=== PATIENT | female | born 1955 | race Caucasian/White ===

== ENCOUNTER 2020-01-09 14:18 | Outpatient (CLI) | payer MEDICARE, SELFPAY ==
[2020-01-09 15:08] LABS: Basophils % 0.3 %; Eosinophils # 0.1 10^3/uL (0.0-0.8); Eosinophils % 0.7 %; Hematocrit 46.9 % (37.0-47.0); Hemoglobin 15.9 g/dL (11.5-15.3); Lymphocytes # 2.1 10^3/uL (0.8-4.8); Lymphocytes % 29.3 %; Mean Corpuscular HGB Conc 33.9 g/dL (30.0-36.0); Mean Corpuscular Hemoglobin 33.8 pg (28.0-34.0); Mean Corpuscular Volume 99.6 fL (81-99); Monocytes # 0.6 10^3/uL (0.2-0.9); Monocytes % 9.1 %; Neutrophils # 4.2 10^3/uL (1.8-7.7); Neutrophils % 59.9 %; Nucleated Red Blood Cells % 0 %; Platelet Count 209 10^3/cmm (130-400); Red Blood Count 4.71 10^6/uL (4.1-5.3); Red Cell Distribution Width 12.5 % (12.1-15.1)
[2020-01-09 15:10] LABS: Alanine Aminotransferase 26 U/L (0-33); Albumin Level 4.1 g/dL (3.5-5.2); Alkaline Phosphatase 96 IU/L (35-105); Anion Gap 13.1 (5-19); Aspartate Amino Transferase 26 U/L (0-32); Blood Urea Nitrogen 14 mg/dL (8-23); Calcium 11.3 mg/dL (8.5-10.5); Carbon Dioxide 32 mmol/L (22-29); Chloride 100 mmol/L (98-107); Globulin 3.6 g/dL (1.3-4.6); Glomerular Filtration Rate 49.7 mL/min (90-130); Glucose 103 mg/dL (65-115); Osmolality Calculated 288 mOsm/kg (285-295); Potassium 4.1 mmol/L (3.5-5.1); Sodium 141 mmol/L (136-145); Total Bilirubin 0.4 mg/dL (0.15-1.2); Total Protein 7.7 g/dL (6.6-8.7)
--- NOTE | 2020-01-09 16:39 | ONC FU_ITS ---
Dr. Short follow up note Patient: Sunni Iglesias Unit #: [id number]: [id number] Dicatated By: Shelia Short M.D.Date of Visit:Jan 09, 2020 Onc Med Follow-up/Prog Note History of Present Illness: This is a 61 year-old woman with grade 2-3 infiltrating ductal carcinoma of the left breast, clinical stage IIA (T2, N0, M0), ER positive/WY negative and HER-2/ernesto positive. She had presented with a palpable left breast mass. Her mammogram on 05/03/2014 showed two lesions in close proximity at 2:00 position, about 9 mm away from each other. One measured 2.9 cm and the other measured 1.3 cm. There were two lymph nodes in the left axilla, suggestive of benign morphology. On 05/15/2014 an ultrasound-guided biopsy revealed invasive ductal carcinoma in both lesions. The prognostic markers were ER 99%, WY 1%, Ki67 50%, HER-2/ernesto amplified by FISH at 4.5. On 06/05/2014 she underwent sentinel lymph node biopsy of the left axilla; 5 lymph nodes harvested were negative for metastatic disease. Port-A-Cath was placed. Cardiac ejection fraction by echocardiogram was normal at 72%. Neoadjuvant chemotherapy with the TCH-P regimen, which consist of docetaxel, carboplatin, Pertuzumab and Herceptin for 6 cycles was delivered 06/20/14 thru 10/03/14. It was complicated with grade 4 neutropenia without fevers. She developed thrush, mucositis and recurrent urinary tract infection, treated with amoxicillin. On 11/07/2014 she underwent lumpectomy. Surgical pathology showed 2 foci of residual tumor measuring 1.5 cm and 1.1 cm with DCIS, solid type. The tumor was grade 3, and lymphovascular invasion was present. One lymph node was not involved. Superior margins were close at less than 1 mm. Thus, stage IA (ypT1c, N0, M0). She had a re- resection of the tumor on 11/27/2014, 2 foci of residual DCIS up to 0.5 mm were discovered. She completed radiation to the left breast on 02/14/2015 to a total dose of 6400 cGy. Bone density on 03/15/2015 showed osteoporosis. She did have treatment with Prolia on 03/21/2015, but it cuased jaw pain, and she opted not to have any further treatment with it. She began adjuvant hormonal therapy with Arimidex in October of 2014. She completed 52 weeks of Herceptin on 07/04/2015. Her hormonal therapy was changed to Femara in March 2016 due to increased musculoskeletal pain. It was then changed to Aromasin, again due to musculoskeletal pain.completed 5 years of hormonal therapy in October 2019 Follow-up mammogram done on 09/15/2019 showed benign finding bilaterally Came for follow-up, denies any specific complaints except chronic kukp-xc-[id number] muscular skeleton discomfort/pain especially involving shoulders. No hot flashes since she is off adjuvant hormonal therapy which she completed in October 2019 for 5 years. More energetic, no fever or chills, no nausea or vomiting, no diarrhea constipation, appetite is good. Medications: Caltrate Gummy Bites 1 (250-400 mg - Units) Tablet, chewable Oral b.i.d., Multivitamin Adult 1 Tablet Oral daily, Probiotic Capsule Oral PRN, RaNITidine HCl 1 Tablet (of 150 mg) Oral b.i.d. PRN, Xanax 1 (0.5 mg) Tablet Oral PRN Allergies: Cipro, Codeine, Macrobid, and Sulpha. Review of Systems: Review of Systems is not available for this patient. Vital Signs: Vitals are not available for this patient. Performance Status: 0 - Fully active, able to carry on all predisease activities without restrictions. (ECOG) Physical Examination: Respiratory - Lungs are clear to auscultation without rhonchi or wheezing, Cardiovascular - Regular rate and rhythm of heart, Extremities - no edema. Lab/Imaging: Most recent lab results are not available for this patient. Impression: 1. Patient with multifocal infiltrating ductal carcinoma of the left breast, ER positive/WY negative and HER-2/ernesto positive. She had clinical stage IIA disease at initial diagnosis in April 2014, 2. She was given neoadjuvant chemotherapy with 6 cycles of TCH-P, completed in September 2014. 3. She underwent lumpectomy in October 2014 with surgical pathology showing multiple foci of invasive carcinoma. The largest size of individual foci showed maximum span of 1.5 and 1.1 cm. Solid type ductal carcinoma in situ also was present, estimated size at least 1.5 cm. 4. Reexcision lumpectomy on 11/27/2014 showed 2 foci of residual ductal carcinoma in situ measuring up to 0.5 cm. 5. She completed radiation to the left breast on 02/14/2015 20 total dose of 6400 cGy. 6. Adjuvant hormonal therapy with Arimidex began in October 2014. She completed 52 weeks of Herceptin on 07/04/2015. 7. As of March 2016 her hormonal treatment was changed to Femara due to musculoskeletal pain. Her other medical illnesses include: 8. GERD. 9. Nephrolithiasis. 10. Osteoporosis. Osteoporosis. She did have treatment with Prolia on 03/21/15, but it caused jaw pain and she opted against any further treatment with it. DEXA scan done on 03/18/2017 showed improved bone density by 13.9% she is on calcium and vitamin D supplement She began adjuvant hormonal therapy with Arimidex in October of 2014. She completed 52 weeks of Herceptin on 07/04/2015. Her hormonal therapy was changed to Femara in March 2016 due to increased musculoskeletal pain. It was subsequently changed to Aromasin, again due to of musculoskeletal pain. Initially she had been tolerating the Aromasin somewhat better, but it was stopped a little over a month ago because of musculoskeletal pain. Since she's been off treatment, the pain is really not improved significantly. As such, it appears likely that the main cause of it is underlying degenerative disease. Mammogram done on 08/12/2018, BI-RADS 2, benign DEXA scan done on 05/03/2019 showed spinal bone mineral density within the range of osteoporosis Mean proximal femur bone mineral density within the range of borderline osteoporosis. Patient on vitamin D and calcium supplement. Was offered Prolia, patient declined Plan: . Discussed with patient regarding her labs white blood count 7 hemoglobin 15.9 crit 46.9 platelets 209,000 CMP within normal limits except calcium 11.3 Clinically, patient doing well with no signs symptoms suggestive of recurrence of disease patient has completed 5 years of chemotherapy in October 2019. And her follow-up mammogram done in August 2019 was unremarkable. At this point we will change her follow-up to 1 year and she will return to clinic in one year with CBC CMP and follow-up mammogram, as far as mild hyper calcium is concern patient is calcium supplement patient was advised to hold calcium and we will check her calcium level and a month to ensure normalization. Signed By: Shelia Short M.D. <<Signature on File>>
== END 2020-01-09 14:19 | disposition home or self-care (01) ==
LOC: ONCMED 14:27
PROVIDERS: Family Provider Family Medicine; PCP Family Medicine; Visit Provider Internal Medicine Hematology & Oncology
DX: Z08 Encounter for follow-up examination after completed treatment for malignant neoplasm (principal); Z85.3 Personal history of malignant neoplasm of breast; M81.0 Age-related osteoporosis without current pathological fracture; K21.9 Gastro-esophageal reflux disease without esophagitis; Z79.811 Long term (current) use of aromatase inhibitors; Z79.899 Other long term (current) drug therapy; Z92.23 Personal history of estrogen therapy; Z92.3 Personal history of irradiation; Z92.25 Personal history of immunosuppression therapy; Z87.442 Personal history of urinary calculi
CPT/HCPCS: 36415; 80053; 85025; G0463

== ENCOUNTER 2020-02-06 12:15 | Outpatient (CLI) | payer MEDICARE, SELFPAY ==
[2020-02-06 20:34] LABS: Basophils % 0.6 %; Eosinophils # 0.1 10^3/uL (0.0-0.8); Eosinophils % 0.8 %; Hemoglobin 15.2 g/dL (11.5-15.3); Lymphocytes # 1.7 10^3/uL (0.8-4.8); Lymphocytes % 26.2 %; Mean Corpuscular Hemoglobin 34.2 pg (28.0-34.0); Mean Corpuscular Volume 103.4 fL (81-99); Mean Platelet Volume 11.5 fL (7.4-10.4); Monocytes # 0.4 10^3/uL (0.2-0.9); Monocytes % 6.2 %; Neutrophils # 4.3 10^3/uL (1.8-7.7); Neutrophils % 65.6 %; Nucleated Red Blood Cells % 0 %; Platelet Count 203 10^3/cmm (130-400); Red Blood Count 4.45 10^6/uL (4.1-5.3); Red Cell Distribution Width 12.7 % (12.1-15.1); White Blood Count 6.6 10^3/uL (4.0-10.0)
[2020-02-06 21:00] LABS: Alanine Aminotransferase 22 U/L (0-33); Albumin Level 4.5 g/dL (3.5-5.2); Alkaline Phosphatase 80 IU/L (35-105); Anion Gap 18.3 (5-19); Aspartate Amino Transferase 25 U/L (0-32); Blood Urea Nitrogen 18 mg/dL (8-23); Calcium 9.5 mg/dL (8.5-10.5); Carbon Dioxide 24 mmol/L (22-29); Chloride 99 mmol/L (98-107); Globulin 2.6 g/dL (1.3-4.6); Glomerular Filtration Rate 62.6 mL/min (90-130); Glucose 85 mg/dL (65-115); Osmolality Calculated 280 mOsm/kg (285-295); Potassium 4.3 mmol/L (3.5-5.1); Sodium 137 mmol/L (136-145); Total Bilirubin 0.3 mg/dL (0.15-1.2); Total Protein 7.1 g/dL (6.6-8.7)
== END 2020-02-06 12:16 | disposition home or self-care (01) ==
LOC: ONCMED 02-07 07:35
PROVIDERS: Family Provider Family Medicine; PCP Family Medicine; Visit Provider Internal Medicine Hematology & Oncology
DX: C50.412 Malignant neoplasm of upper-outer quadrant of left female breast (principal)
CPT/HCPCS: 36415; 80053; 85025

== ENCOUNTER 2021-03-04 12:57 | Outpatient (CLI) | payer MEDICARE, SELFPAY ==
[2021-03-04 13:53] LABS: Basophils % 0.4 %; Eosinophils # 0.1 10^3/uL (0.0-0.8); Eosinophils % 0.8 %; Hematocrit 52.5 % (37.0-47.0); Hemoglobin 17.4 g/dL (11.5-15.3); Lymphocytes # 2.1 10^3/uL (0.8-4.8); Lymphocytes % 27.2 %; Mean Corpuscular HGB Conc 33.1 g/dL (30.0-36.0); Mean Corpuscular Hemoglobin 32.9 pg (28.0-34.0); Mean Corpuscular Volume 99.2 fL (81-99); Mean Platelet Volume 10.5 fL (7.4-10.4); Monocytes # 0.5 10^3/uL (0.2-0.9); Neutrophils # 5.07 10^3/uL (1.8-7.7); Neutrophils % 65.2 %; Nucleated Red Blood Cells % 0 %; Platelet Count 207 10^3/cmm (130-400); Red Blood Count 5.29 10^6/uL (4.1-5.3); Red Cell Distribution Width 12.4 % (12.1-15.1); White Blood Count 7.8 10^3/uL (4.0-10.0)
[2021-03-04 14:15] LABS: Alanine Aminotransferase 42 U/L (0-33); Albumin Level 4.1 g/dL (3.5-5.2); Alkaline Phosphatase 106 IU/L (35-105); Anion Gap 12.1 (5-19); Aspartate Amino Transferase 32 U/L (0-32); Blood Urea Nitrogen 19 mg/dL (8-23); Calcium 9.4 mg/dL (8.5-10.5); Carbon Dioxide 29 mmol/L (22-29); Chloride 100 mmol/L (98-107); Globulin 2.5 g/dL (1.3-4.6); Glomerular Filtration Rate 62.5 mL/min (90-130); Glucose 80 mg/dL (65-115); Osmolality Calculated 285 mOsm/kg (285-295); Potassium 4.1 mmol/L (3.5-5.1); Sodium 137 mmol/L (136-145); Total Bilirubin 0.3 mg/dL (0.15-1.2); Total Protein 6.6 g/dL (6.6-8.7)
--- NOTE | 2021-03-04 16:26 | ONC FU_ITS ---
Dr. Short follow up note Patient: Sunni Iglesias Unit #: [id number]: [id number] Dicatated By: Shelia Short M.D.Date of Visit:March 04, 2021 Onc Med Follow-up/Prog Note History of Present Illness: This is a 65 year-old woman with grade 2-3 infiltrating ductal carcinoma of the left breast, clinical stage IIA (T2, N0, M0), ER positive/AR negative and HER-2/renesto positive. She had presented with a palpable left breast mass. Her mammogram on 05/03/2014 showed two lesions in close proximity at 2:00 position, about 9 mm away from each other. One measured 2.9 cm and the other measured 1.3 cm. There were two lymph nodes in the left axilla, suggestive of benign morphology. On 05/15/2014 an ultrasound-guided biopsy revealed invasive ductal carcinoma in both lesions. The prognostic markers were ER 99%, AR 1%, Ki67 50%, HER-2/ernesto amplified by FISH at 4.5. On 06/05/2014 she underwent sentinel lymph node biopsy of the left axilla; 5 lymph nodes harvested were negative for metastatic disease. Port-A-Cath was placed. Cardiac ejection fraction by echocardiogram was normal at 72%. Neoadjuvant chemotherapy with the TCH-P regimen, which consist of docetaxel, carboplatin, Pertuzumab and Herceptin for 6 cycles was delivered 06/20/14 thru 10/03/14. It was complicated with grade 4 neutropenia without fevers. She developed thrush, mucositis and recurrent urinary tract infection, treated with amoxicillin. On 11/07/2014 she underwent lumpectomy. Surgical pathology showed 2 foci of residual tumor measuring 1.5 cm and 1.1 cm with DCIS, solid type. The tumor was grade 3, and lymphovascular invasion was present. One lymph node was not involved. Superior margins were close at less than 1 mm. Thus, stage IA (ypT1c, N0, M0). She had a re- resection of the tumor on 11/27/2014, 2 foci of residual DCIS up to 0.5 mm were discovered. She completed radiation to the left breast on 02/14/2015 to a total dose of 6400 cGy. Bone density on 03/15/2015 showed osteoporosis. She did have treatment with Prolia on 03/21/2015, but it cuased jaw pain, and she opted not to have any further treatment with it. She began adjuvant hormonal therapy with Arimidex in October of 2014. She completed 52 weeks of Herceptin on 07/04/2015. Her hormonal therapy was changed to Femara in March 2016 due to increased musculoskeletal pain. It was then changed to Aromasin, again due to musculoskeletal pain.completed 5 years of hormonal therapy in October 2019 Follow-up mammogram done on 09/15/2019 showed benign finding bilaterally Follow-up mammogram done on February 21, 2021 showed BI-RADS 2, benign Came for follow-up, denies any specific complaint except chronic right shoulder pain which is progressive, as per patient long time back she had injury as she was helping her horse and used to take ibuprofen and now with progressive mild restriction in the movements at right shoulder but no swelling, no peripheral numbness in the right hand, no overlying skin changes. Otherwise no new bony pains, no jaundice, no nausea or vomiting, no fever chills, no weight loss, appetite is good. 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 Medications: Caltrate Gummy Bites 1 (250-400 mg - Units) Tablet, chewable Oral b.i.d., Multivitamin Adult 1 Tablet Oral daily, Probiotic Capsule Oral PRN, RaNITidine HCl 1 Tablet (of 150 mg) Oral b.i.d. PRN, Xanax 1 (0.5 mg) Tablet Oral PRN Allergies: Cipro, Codeine, Macrobid, and Sulpha. Review of Systems: Review of Systems is not available for this patient. Vital Signs: Performed on March 04, 2021 15:49 Height - 66.00 in Weight - 162.8 lbs (LOW) BSA - 1.83 sq.m BMI - 26.28 Temperature - 98.4 F Pulse - 96 /min Respiration - 18 /min BP - 109/70 mm(hg) O2 Sat - 96 % Pain - 6 Fatigue - 0 Performance Status: 0 - Fully active, able to carry on all predisease activities without restrictions. (ECOG) Physical Examination: Respiratory - Lungs are clear to auscultation without rhonchi or wheezing, Cardiovascular - Regular rate and rhythm of heart without murmurs, gallops or rubs, Gastrointestinal - Rectum without hemorrhoids, fissures, tenderness or masses, Extremities - Mild tenderness in the right anterior shoulder and posterior but no fullness or overlying skin changes, no lower extremity edema or rash. Lab/Imaging: Most recent lab results are not available for this patient. Impression: 1. Patient with multifocal infiltrating ductal carcinoma of the left breast, ER positive/AR negative and HER-2/ernesto positive. She had clinical stage IIA disease at initial diagnosis in April 2014, 2. She was given neoadjuvant chemotherapy with 6 cycles of TCH-P, completed in September 2014. 3. She underwent lumpectomy in October 2014 with surgical pathology showing multiple foci of invasive carcinoma. The largest size of individual foci showed maximum span of 1.5 and 1.1 cm. Solid type ductal carcinoma in situ also was present, estimated size at least 1.5 cm. 4. Reexcision lumpectomy on 11/27/2014 showed 2 foci of residual ductal carcinoma in situ measuring up to 0.5 cm. 5. She completed radiation to the left breast on 02/14/2015 20 total dose of 6400 cGy. 6. Adjuvant hormonal therapy with Arimidex began in October 2014. She completed 52 weeks of Herceptin on 07/04/2015. 7. As of March 2016 her hormonal treatment was changed to Femara due to musculoskeletal pain. Her other medical illnesses include: 8. GERD. 9. Nephrolithiasis. 10. Osteoporosis. Osteoporosis. She did have treatment with Prolia on 03/21/15, but it caused jaw pain and she opted against any further treatment with it. DEXA scan done on 03/18/2017 showed improved bone density by 13.9% she is on calcium and vitamin D supplement She began adjuvant hormonal therapy with Arimidex in October of 2014. She completed 52 weeks of Herceptin on 07/04/2015. Her hormonal therapy was changed to Femara in March 2016 due to increased musculoskeletal pain. It was subsequently changed to Aromasin, again due to of musculoskeletal pain.And she completed 5 years of adjuvant hormonal therapy in October 2019 Initially she had been tolerating the Aromasin somewhat better, but it was stopped a little over a month ago because of musculoskeletal pain. Since she's been off treatment, the pain is really not improved significantly. As such, it appears likely that the main cause of it is underlying degenerative disease. Mammogram done on 08/12/2018, BI-RADS 2, benign DEXA scan done on 05/03/2019 showed spinal bone mineral density within the range of osteoporosis Mean proximal femur bone mineral density within the range of borderline osteoporosis. Patient on vitamin D and calcium supplement. Was offered Prolia, patient declined Follow-up mammogram done on February 21, 2021 showed benign findings BI-RADS 2. Plan: . Discussed with patient regarding her labs white blood count 7.8 hemoglobin 17.4 hematocrit 52.5 platelets 207,000 CMP within normal limits and follow-up mammogram showed no abnormalities Clinically, patient doing well with no new signs symptoms just of recurrence of disease her follow-up lab work is within normal range including her calcium level. Her follow-up mammogram showed no abnormality. As far as right shoulder pain is concerned which is chronic in nature, due to injury in the distant past, clinically, it appears she may have bursitis or tendinitis, patient was advised to discuss with PMD or we can refer her to orthopedics for evaluation as she may benefit from cortisone injection if no other abnormality found on the scans. Patient will discuss with her primary care and then plan. We will continue to follow her from oncology point of view and she will return to clinic in 1 year with CBC CMP and follow-up mammogram Signed By: Shelia Short M.D. <<Signature on File>>
== END 2021-03-04 12:58 | disposition home or self-care (01) ==
LOC: ONCMED 13:02
PROVIDERS: PCP Family Medicine; Visit Provider Internal Medicine Hematology & Oncology
DX: Z08 Encounter for follow-up examination after completed treatment for malignant neoplasm (principal); Z85.3 Personal history of malignant neoplasm of breast; Z90.12 Acquired absence of left breast and nipple; Z92.3 Personal history of irradiation; Z79.890 Hormone replacement therapy; K21.9 Gastro-esophageal reflux disease without esophagitis; N20.0 Calculus of kidney; M81.0 Age-related osteoporosis without current pathological fracture; E55.9 Vitamin D deficiency, unspecified; E83.51 Hypocalcemia; Z79.899 Other long term (current) drug therapy
CPT/HCPCS: 36415; 80053; 85025; 99214

== ENCOUNTER 2021-10-22 18:09 | Emergency (ER) | payer MEDICARE, SELFPAY ==
--- NOTE | 2021-10-22 18:15 | XRR_ITS ---
PROCEDURE INFORMATION: Exam: XR Right Shoulder Exam date and time: 10/22/2021 6:15 PM Age: 66 years old Clinical indication: Injury or trauma; Other: Reaching to move tree branch from fence. [place] pop; Sprain or strain; Shoulder; Right TECHNIQUE: Imaging protocol: XR Right shoulder. Views: 2 or more views. COMPARISON: No relevant prior studies available. FINDINGS: Bones/joints: Osseous structures are intact. Negative for fracture. Mild DJD of the acromioclavicular joint. Soft tissues: Normal. XR/XR shoulder RT min 2V* 51130 IMPRESSION: No acute findings.
[2021-10-22 18:58] VITALS: BP 166/86; PULSE 78; RESP 18; TEMP 36.3; O2SAT 97; BMI 25.8
--- NOTE | 2021-10-22 19:40 | W.ED.EXTPRO ---
HPI - Extremity Problem General: Chief complaint: Extremity Injury, Upper Stated complaint: Rt Shoulder Injury Time Seen by Provider: 10/22/21 19:39 History of Present Illness: HPI Narrative: Patient is a 66-year-old female comes to the ED with right shoulder injury. Patient says she has had problems in the past with her right shoulder and has been told she has some arthritis there as well. Today she was clearing some trees that fell down on some fencing. She went to lift up a tree branch that was on a fence and when she used her right arm to push the tree branch up and over fence she felt a pop in her right shoulder and then felt pain. She denies limited range of motion in right shoulder. Pain in shoulder when she abducts or externally rotates her arm. Associated symptoms: Deny chest pain, fever(s) or rash Review of Systems Const: Denies: fever(s), chills or fatigue Eyes: Denies: change in vision or eye discomfort ENMT: Denies: throat pain, odynophagia, nasal discharge or nasal congestion Card: Denies: chest pain, palpitations, edema, swelling of feet/ankles, dyspnea on exertion or orthopnea Resp: Denies: dyspnea, productive cough or non-productive cough GI: Denies: abdominal pain, nausea, vomiting, diarrhea, constipation or hematochezia : Denies: flank pain, dysuria or hematuria Musc: Reports: extremity pain (right shoulder) and limited range of motion (right shoulder); Denies: neck pain, back pain or extremity swelling Skin/Breast: Denies: rash or new lesions Neuro: Denies: headache(s), numbness in extremities or weakness in extremities Physical Exam Const: COMMON NORMALS: no acute distress, patient oriented x3 and alert GENERAL APPEARANCE: cooperative and comfortable HENMT: COMMON NORMALS: normocephalic HEAD & SCALP: normocephalic MOUTH: Normal oral and palatal mucosa present THROAT: posterior oropharynx normal and uvula midline Neck/C-Spine: COMMON NORMALS: supple GENERAL: Yes normal visual inspection Resp: COMMON NORMALS: normal respiratory effort, No retractions, No use of accessory muscles and clear to auscultation bilaterally AUSCULTATION: clear to auscultation bilaterally Cardio: COMMON NORMALS: regular rate, regular rhythm, S1 normal heart sound present, S2 normal heart sound present, No gallops present (Cardio), No clicks present (Cardio), No murmurs present (Cardio) and Peripheral pulses 2+ throughout RATE: regular rate RHYTHM: regular rhythm HEART SOUNDS: S1 normal heart sound present and S2 normal heart sound present PERIPHERAL PULSES: Peripheral pulses 2+ throughout GI: COMMON NORMALS: Normal to inspection, nondistended, normoactive bowel sounds present, Soft to palpation, non-tender and no masses PALPATION: Yes Soft to palpation : COMMON NORMALS: Yes no CVA tenderness BLADDER/KIDNEY EXAM: Yes no CVA tenderness Back/Pelvis: COMMON NORMALS: no CVA tenderness Extremity: GENERAL: Yes normal exam except as noted RIGHT UPPER EXTREMITY: Yes shoulder joint (Tenderness to palpation over AC joint and posterior aspect of shoulder) Right shoulder: Yes Right shoulder joint inspection exam (No visible deformity noted.), Yes palpation, Yes Right shoulder joint ROM exam (Limited range of motion for abduction of arm due to pain), Yes Right shoulder joint neurovascular exam (Intact) and Yes Right shoulder joint other findings (Pain with external rotation of right arm.) Neuro: COMMON NORMALS: patient oriented x3 and moves all extremities SENSORIUM/ORIENTATION: Yes alert Skin: GENERAL SKIN EXAM: dry skin Course Vital Signs: Vital signs: Vital Signs Temperature 97.4 F L 10/22/21 18:58 Pulse Rate 78 10/22/21 18:58 Respiratory Rate 18 10/22/21 18:58 Blood Pressure 166/86 10/22/21 18:58 Pulse Oximetry 97 10/22/21 18:58 MDM - Extremity (Nontraumatic) MDM Narrative: Medical decision making narrative: Patient is a 66-year-old female comes to the ED with right shoulder injury. Patient says she has had problems in the past with her right shoulder and has been told she has some arthritis there as well. Today she was clearing some trees that fell down on some fencing. She went to lift up a tree branch that was on a fence and when she used her right arm to push the tree branch up and over fence she felt a pop in her right shoulder and then felt pain. She denies limited range of motion in right shoulder. Pain in shoulder when she abducts or externally rotates her arm. Vitals are stable. Exam of patient shows limited range of motion due to pain in right shoulder with abduction and external rotation of her right arm. Neurovascular intact distally. X-ray of right shoulder showed no acute fractures or findings. Patient was put in a shoulder sling and discharged home. I placed order with case management for patient to be referred to orthopedic for further evaluation of right shoulder injury and pain. Suspicious for rotator cuff injury. Patient diagnosed with right shoulder injury and she was told watch case polisher will contact her in the next several days to set up an appoint with orthopedic. Take [id number] Tylenol or Motrin for any pain. Return to ED precautions given. Patient understood agree with plan. Imaging Data^: Xray Ortho: Attestation: I personally reviewed and interpreted this imaging study as follows: Radiologist's impression: [id number] [place], [place] [address]LQeh ReportSigned Patient: Sunni Iglesias #: [id number]: [id number]#:[id number]/Sex: 66 / FADM Date: 10/22/21Loc: ERRoom/Bed:Attending Dr: Ordering Provider/Ordering MD: Ben Del Toro MD Date of Service: 10/22/21 Procedure(s): XR shoulder RT min 2V* 44030 Accession Number(s): [id number] Report Number: [id number] PROCEDURE INFORMATION: Exam: XR Right Shoulder Exam date and time: 10/22/2021 6:15 PM Age: 66 years old Clinical indication: Injury or trauma; Other: Reaching to move tree branch from fence. [place] pop; Sprain or strain; Shoulder; Right TECHNIQUE: Imaging protocol: XR Right shoulder. Views: 2 or more views. COMPARISON: No relevant prior studies available. FINDINGS: Bones/joints: Osseous structures are intact. Negative for fracture. Mild DJD of the acromioclavicular joint. Soft tissues: Normal. XR/XR shoulder RT min 2V* [id number] IMPRESSION: No acute findings. Dictated By:Koby Chavez DOSigned By:Koby Chavez DOSmargaret Date/Time:10/22/21 1841DD/ 1815 Discharge Plan Discharge Patient Disposition: Home Clinical Impression: Right shoulder injury Qualifiers: Encounter type: initial encounter Qualified Code(s): S49.91XA - Unspecified injury of right shoulder and upper arm, initial encounter Condition: Stable Discharge Orders: Discharge ED (Routine); Ordered 10/22/21 Ordered By: Chirag Fong Referrals: Rivera Garcia [Primary Care Provider] - Discharge Diet: Regular Discharge Activity: Limit activity as instructed Patient Instructions: Rotator Cuff Injury (ED), Shoulder Sprain (ED), Shoulder Pain (ED) Activity Restrictions/Additional Instructions: Follow-up with medical provider as directed. Case management should be contacting you in the next several days to set up an appointment with orthopedic for follow-up and further evaluation of right shoulder injury. Apply cold pack on the shoulder to help with symptoms and wear shoulder sling. Limit activity with right arm as well until cleared by orthopedic doctor. Continue taking your home medications as previously prescribed. Return to the ER or your medical provider if condition worsens. Please read and understand discharge instructions. Thank you for choosing [facility] for your healthcare needs today. Please realize this is an emergency room and that we are providing you with a medical screening exam and this may not be complete and all inclusive of all the testing and or work up that you may need to determine your ailment or severity of your illness. It is very important that you follow up as instructed or that you return to the Emergency Department should you have concerns or if your condition changes or worsens in any way. Coding Level of Care Code ED Shear Scrapman for Tahira Barbosa Exam Comprehensive
--- NOTE | 2021-11-07 05:52 | DCPLANNER ---
bilingual account manager did refer patient to ortho - patient was seen on 10.28.21 at ortho.
== END 2021-10-22 20:07 | disposition home or self-care (01) ==
PROVIDERS: Emergency Provider Physician Assistant; PCP Family Medicine
DX: S49.91XA Unspecified injury of right shoulder and upper arm, initial encounter (principal); X50.0XXA Overexertion from strenuous movement or load, initial encounter
CPT/HCPCS: 73030; 99282

== ENCOUNTER 2022-04-29 09:25 | Oncology outpatient (recurring) (ONCR) | payer MEDICARE, SELFPAY ==
[2022-04-29 10:06] LABS: Basophils # 0.1 10^3/uL (0.0-0.1); Eosinophils # 0.4 10^3/uL (0.0-0.8); Hematocrit 45.2 % (37.0-47.0); Hemoglobin 15.2 g/dL (11.5-15.3); Lymphocytes # 1.5 10^3/uL (0.8-4.8); Mean Corpuscular HGB Conc 33.6 g/dL (30.0-36.0); Mean Corpuscular Volume 98.3 fl (81-99); Mean Platelet Volume 10.6 fL (7.4-10.4); Monocytes # 0.7 10^3/uL (0.2-0.9); Monocytes % 9.7 %; Neutrophils # 4.61 10^3/uL (1.8-7.7); Neutrophils % 62.8 %; Nucleated Red Blood Cells % 0 %; Platelet Count 199 10^3/cmm (130-400); Red Cell Distribution Width 13.1 % (12.1-15.1); White Blood Count 7.3 10^3/uL (4.0-10.0)
[2022-04-29 10:14] LABS: Alanine Aminotransferase 10 U/L (0-33); Albumin Level 4.2 g/dL (3.5-5.2); Alkaline Phosphatase 97 IU/L (35-105); Anion Gap 16.3 (5-19); Aspartate Amino Transferase 15 U/L (0-32); Blood Urea Nitrogen 20 mg/dL (8-23); Calcium 9.7 mg/dL (8.5-10.5); Carbon Dioxide 25 mmol/L (22-29); Chloride 100 mmol/L (98-107); Globulin 2.8 g/dL (1.3-4.6); Glomerular Filtration Rate 49.4 mL/min (90-130); Glucose 87 mg/dL (65-115); Osmolality Calculated 286 mOsm/kg (285-295); Potassium 4.3 mmol/L (3.5-5.1); Sodium 137 mmol/L (136-145); Total Bilirubin 0.3 mg/dL (0.15-1.2)
== END 2022-05-24 23:59 | disposition home or self-care (01) ==
PROVIDERS: PCP Family Medicine; Referring Provider Surgery; Visit Provider Internal Medicine Hematology & Oncology
DX: Z85.3 Personal history of malignant neoplasm of breast (principal); F17.210 Nicotine dependence, cigarettes, uncomplicated
CPT/HCPCS: 36415; 69210; 80053; 85025; 99214

== ENCOUNTER 2023-06-21 12:23 | Oncology outpatient (recurring) (ONCR) | payer MEDICARE, SELFPAY ==
[2023-06-21 12:29] VITALS: BP 138/85; PULSE 77; RESP 18; TEMP 36.5; O2SAT 96
[2023-06-21 12:46] LABS: Basophils # 0.1 10^3/uL (0.0-0.1); Basophils % 0.8 %; Eosinophils # 0.1 10^3/uL (0.0-0.8); Eosinophils % 1.7 %; Hematocrit 46.6 % (36-47); Lymphocytes # 1.8 10^3/uL (0.8-4.8); Lymphocytes % 27.9 %; Mean Corpuscular HGB Conc 33.5 g/dL (30-55); Mean Corpuscular Hemoglobin 32.4 pg (27-33); Mean Corpuscular Volume 96.9 fl (85-98); Monocytes # 0.7 10^3/uL (0.2-0.9); Monocytes % 10.3 %; Neutrophils # 3.86 10^3/uL (1.8-7.7); Nucleated Red Blood Cells % 0 %; Platelet Count 188 10^3/cmm (157-399); Red Blood Count 4.81 10^6/uL (3.85-5.65); Red Cell Distribution Width 13.1 % (12.1-15.1); White Blood Count 6.53 10^3/uL (3.29-11.43)
[2023-06-21 13:12] LABS: Alanine Aminotransferase 12 U/L (0-33); Albumin Level 4.3 g/dL (3.5-5.2); Alkaline Phosphatase 99 U/L (35-105); Anion Gap 12.3 (5-19); Aspartate Amino Transferase 17 U/L (0-32); Blood Urea Nitrogen 14 mg/dL (8-23); Calcium 9.7 mg/dL (8.5-10.5); Carbon Dioxide 28 mmol/L (22-29); Chloride 104 mmol/L (98-107); Globulin 2.5 g/dL (1.3-4.6); Glucose 92 mg/dL (65-115); Osmolality Calculated 290 mOsm/kg (285-295); Potassium 4.3 mmol/L (3.5-5.1); Sodium 140 mmol/L (136-145); Total Bilirubin 0.4 mg/dL (0.15-1.2); Total Protein 6.8 g/dL (6.6-8.7)
== END 2023-06-24 23:59 | disposition home or self-care (01) ==
PROVIDERS: Internal Medicine Medical Oncology; PCP Family Medicine; Referring Provider Surgery; Visit Provider Internal Medicine Hematology & Oncology
DX: Z08 Encounter for follow-up examination after completed treatment for malignant neoplasm (principal); Z85.3 Personal history of malignant neoplasm of breast; F17.210 Nicotine dependence, cigarettes, uncomplicated; Z92.21 Personal history of antineoplastic chemotherapy; Z92.3 Personal history of irradiation
CPT/HCPCS: 36415; 80053; 85025; 99213

== ENCOUNTER → 2023-08-30 11:15 | Outpatient (BNVA) | payer MEDICARE, SELFPAY | PROVIDERS: PCP Family Medicine; Visit Provider Podiatrist Foot & Ankle Surgery | DX: Q82.8 Other specified congenital malformations of skin (principal); M21.621 Bunionette of right foot; M21.622 Bunionette of left foot | CPT/HCPCS: 17110; 99203 ==

== ENCOUNTER 2024-03-18 17:52 | Emergency (ER) | payer MEDICARE, SELFPAY ==
[2024-03-18 17:57] VITALS: BP 175/92; PULSE 106; RESP 17; TEMP 36.7; O2SAT 97; BMI 24.2
--- NOTE | 2024-03-18 18:12 | ED_ITS ---
HPI - Dental/Oral 2 General: Chief complaint: Dental/Oral Stated complaint: sores in mouth Time Seen by Provider: 03/18/24 18:04 History of Present Illness: Patient presents to the ER with complaints of sore throat thrush and just not feeling well. Patient says over the last couple months she has been on at least 3 different antibiotics for sinuses that include a least Amoxil and Augmentin. She said she ended up getting thrush and went to the doctor and had 3 days of Diflucan that did not work so she went back and got put on a longer dose of Diflucan that she is currently on now she says she still has a thrush and is complaining of sore throat tongue burning and decreased taste. Review of Systems 2 General: Reports: 10 or more systems reviewed and unremarkable except in HPI and below PFSH ED 2 PFSH: Medical History Breast cancer, left breast Family History Mother Clotting disorder CAD (coronary artery disease) Hyperlipidemia Hypertension Grandfather CAD (coronary artery disease) Grandmother CAD (coronary artery disease) Family/Other Cancer Maternal Aunt, maternal uncle, and maternal great aunt - Breast cancer Sister Stroke Denies family history of Diabetes Dementia Psychiatric illness Chronic kidney disease (CKD) Suicide Anesthesia complication Bleeding disorder Lung disease Social History Smoking and tobacco/nicotine status: current every day tobacco/nicotine user (5 cigs/day) Alcohol intake: never Physical Exam 2 Const: COMMON NORMALS: no acute distress, average body habitus, patient oriented x3, no limitations, healthy appearing, alert and well nourished HENMT: COMMON NORMALS: normocephalic, atraumatic, hearing grossly normal bilaterally, external ears normal, Normal external nose present and moist oral mucous membranes; oropharynx not normal (Posterior oropharynx mildly red and irritated minimal white patches) HEAD & SCALP: normocephalic and atraumatic NOSE: Normal external nose present EXTERNAL EAR: Yes external ears normal Neck/C-Spine: COMMON NORMALS: full ROM, no lymphadenopathy, supple, no meningeal signs, no JVD and Thyroid normal THYROID: Thyroid normal Chest: COMMONS NORMALS: normal inspection of the chest and normal palpation of entire chest wall Resp: COMMON NORMALS: normal respiratory effort, No retractions, No use of accessory muscles and clear to auscultation bilaterally AUSCULTATION: clear to auscultation bilaterally Cardio: COMMON NORMALS: no JVD, regular rate, regular rhythm, S1 normal heart sound present, S2 normal heart sound present, No gallops present (Cardio), No clicks present (Cardio), No murmurs present (Cardio) and No rub (Cardio) R ATE: regular rate RHYTHM: regular rhythm HEART SOUNDS: S1 normal heart sound present and S2 normal heart sound present GI: COMMON NORMALS: Normal to inspection, nondistended, normoactive bowel sounds present, Soft to palpation, non-tender, No hepatosplenomegaly present and no masses PALPATION: Yes Soft to palpation and Yes No hepatosplenomegaly present Neuro: COMMON NORMALS: patient oriented x3 SENSORIUM/ORIENTATION: Yes alert MENINGEAL SIGNS: Yes no meningeal signs Course 2 Vital Signs: Vital signs: Vital Signs Temperature 98.1 F 03/18/24 17:57 Pulse Rate 106 H 03/18/24 17:57 Respiratory Rate 17 03/18/24 17:57 Blood Pressure 175/92 03/18/24 17:57 Pulse Oximetry 97 03/18/24 17:57 Oxygen Delivery Me thod Room Air 03/18/24 17:57 MDM - Dental/Oral Medical Decision Making Lab work came back was reviewed with patient all essentially benign. Patient be prescribed nystatin swish and swallow and can follow-up with her PCP within next 7 days. Differential Diagnosis Unlikely gingival abscess, dental caries, toothache, dental abscess, fracture of tooth or aphthous ulcer Medical Records I reviewed the patient's medical records. Lab Data I reviewed the patient's lab results. 03/18/24 18:21 03/18/24 18:21 Laboratory Results WBC 9.38 10^3/uL (3.29-11.43) 03/18/24 18:21 RBC 4.91 10^6/uL (3.85-5.65) 03/18/24 18:21 Hgb 16.20 g/dL (11.27-16.99) 03/18/24 18:21 Hct 47.7 % (36-47) H 03/18/24 18:21 MCV 97.1 fl (85-98) 03/18/24 18:21 MCH 33.0 pg (27-33) 03/18/24 18:21 MCHC 34.0 g/dL (30-55) 03/18/24 18:21 RDW 13.3 % (12.1-15.1) 03/18/24 18:21 Plt Count 214 10^3/cmm (157-399) 03/18/24 18:21 MPV 10.4 fL (7.4-10.4) 03/18/24 18:21 Neut % (Auto) 71.5 % 03/18/24 18:21 Lymph % (Auto) 19.5 % 03/18/24 18:21 [place] % (Auto) 7.8 % 03/18/24 18:21 Eos % (Auto) 0.1 % 03/18/24 18:21 Baso % (Auto) 0.2 % 03/18/24 18:21 Neut # (Auto) 6.71 10^3/uL (1.8-7.7) 03/18/24 18:21 Lymph # (Auto) 1.8 10^3/uL (0.8-4.8) 03/18/24 18:21 [place] # (Auto) 0.7 10^3/uL (0.2-0.9) 03/18/24 18:21 Eos # (Auto) 0.0 10^3/uL (0.0-0.8) 03/18/24 18:21 Baso # (Auto) 0.0 10^3/uL (0.0-0.1) 03/18/24 18:21 Nucleated RBC % (auto) 0 % 03/18/24 18:21 Nucleated RBCs # 0.0 /100WBC 03/18/24 18:21 Sodium 136 mmol/L (136-145) 03/18/24 18:21 Potassium 4.2 mmol/L (3.5-5.1) 03/18/24 18:21 Chloride 100 mmol/L (98-107) 03/18/24 18:21 Carbon Dioxide 24 mmol/L (22-29) 03/18/24 18:21 Anion Gap 16.2 (5-19) 03/18/24 18:21 BUN 17 mg/dL (8-23) 03/18/24 18:21 Creatinine 1.0 mg/dL (0.5-0.9) H 03/18/24 18:21 GFR Calculation 54.8 mL/min (90-130) L 03/18/24 18:21 Glucose 119 mg/dL (65-115) H 03/18/24 18:21 Calculated Osmolality 285 mOsm/kg (285-295) 03/18/24 18:21 Calcium 9.1 mg/dL (8.5-10.5) 03/18/24 18:21 Total Bilirubin 0.2 mg/dL (0.15-1.2) 03/18/24 18:21 AST 27 U/L (0-32) 03/18/24 18:21 ALT 50 U/L (0-33) H 03/18/24 18:21 Alkaline Phosphatase 91 U/L (35-105) 03/18/24 18:21 Total Protein 7.4 g/dL (6.6-8.7) 03/18/24 18:21 Albumin 4.3 g/dL (3.5-5.2) 03/18/24 18:21 Globulin 3.1 g/dL (1.3-4.6) 03/18/24 18:21 Group A Strep Rapid Negative (Negative) 03/18/24 18:28 No radiology studies performed this visit Discharge Plan Discharge Patient Disposition: Home Clinical Impression: Candidiasis of mouth Condition: Stable Prescriptions: New nystatin 100,000 unit/mL suspension 5 ml PO QID 7 Days Qty: 140 0RF Rx Instructions: swish and swallow No Action famotidine [Pepcid AC] 10 mg tablet 10 mg PO DAILY aspirin [Adult Low Dose Aspirin] 81 mg tablet,delayed release (DR/EC) 81 mg PO DAILY albuterol sulfate [ProAir HFA] 90 mcg/actuation HFA aerosol inhaler 2 puff inhalation Q6H PRN cetirizine 5 mg tablet 5 mg PO DAILY PRN ibuprofen 200 mg tablet 200 mg PO .hs PRN azelastine 137 mcg (0.1 %) aerosol,spray 1 spray intranasal BID Rx Instructions: administer into each nostril alprazolam [Xanax] 0.25 mg tablet 0.25 mg PO TID PRN Discharge Orders: Discharge ED (Routine); Ordered 03/18/24 Ordered By: Nicholas Luo Referrals: Rivera Garcia [Primary Care Provider] - 1 week Patient Instructions: Oral Candidiasis (ED) Activity Restrictions/Additional Instructions: Please use your medicine as directed. Please follow-up with your family practice physician within neck 7 days for further evaluation and treatment. Coding Level of Care Code ED [employer] for Tahira Barbosa
[2024-03-18 18:26] LABS: Basophils % 0.2 %; Eosinophils % 0.1 %; Hematocrit 47.7 % (36-47); Lymphocytes # 1.8 10^3/uL (0.8-4.8); Lymphocytes % 19.5 %; Mean Corpuscular Volume 97.1 fl (85-98); Mean Platelet Volume 10.4 fL (7.4-10.4); Monocytes # 0.7 10^3/uL (0.2-0.9); Monocytes % 7.8 %; Neutrophils # 6.71 10^3/uL (1.8-7.7); Neutrophils % 71.5 %; Nucleated Red Blood Cells % 0 %; Platelet Count 214 10^3/cmm (157-399); Red Blood Count 4.91 10^6/uL (3.85-5.65); Red Cell Distribution Width 13.3 % (12.1-15.1); White Blood Count 9.38 10^3/uL (3.29-11.43)
[2024-03-18 18:43] LABS: Alanine Aminotransferase 50 U/L (0-33); Albumin Level 4.3 g/dL (3.5-5.2); Alkaline Phosphatase 91 U/L (35-105); Anion Gap 16.2 (5-19); Aspartate Amino Transferase 27 U/L (0-32); Blood Urea Nitrogen 17 mg/dL (8-23); Calcium 9.1 mg/dL (8.5-10.5); Carbon Dioxide 24 mmol/L (22-29); Chloride 100 mmol/L (98-107); Creatinine Clr Calc Pharmacy 51.8936; Globulin 3.1 g/dL (1.3-4.6); Glomerular Filtration Rate 54.8 mL/min (90-130); Glucose 119 mg/dL (65-115); Osmolality Calculated 285 mOsm/kg (285-295); Potassium 4.2 mmol/L (3.5-5.1); Sodium 136 mmol/L (136-145); Total Bilirubin 0.2 mg/dL (0.15-1.2); Total Protein 7.4 g/dL (6.6-8.7)
[2024-03-18 18:49] LABS: Rapid Strep A Test Negative (Negative)
[2024-03-18 19:10] VITALS: PULSE 96; RESP 18; O2SAT 96
== END 2024-03-18 19:08 | disposition home or self-care (01) ==
PROVIDERS: Emergency Provider Emergency Medicine; PCP Family Medicine
DX: B37.0 Candidal stomatitis (principal); Z79.82 Long term (current) use of aspirin; F17.210 Nicotine dependence, cigarettes, uncomplicated; Z85.3 Personal history of malignant neoplasm of breast
CPT/HCPCS: 36415; 80053; 85025; 87081; 87880; 99283

== ENCOUNTER 2024-06-21 11:32 | Oncology outpatient (recurring) (ONCR) | payer MEDICARE, SELFPAY ==
[2024-06-21 12:11] LABS: Basophils % 0.3 %; Eosinophils % 0.2 %; Hematocrit 47.8 % (36-47); Lymphocytes # 1.3 10^3/uL (0.8-4.8); Lymphocytes % 12.9 %; Mean Corpuscular HGB Conc 34.1 g/dL (30-55); Mean Corpuscular Hemoglobin 33.8 pg (27-33); Mean Corpuscular Volume 99.2 fl (85-98); Mean Platelet Volume 10.3 fL (7.4-10.4); Monocytes # 0.8 10^3/uL (0.2-0.9); Monocytes % 7.9 %; Neutrophils # 7.63 10^3/uL (1.8-7.7); Neutrophils % 78.1 %; Nucleated Red Blood Cells % 0 %; Platelet Count 221 10^3/cmm (157-399); Red Blood Count 4.82 10^6/uL (3.85-5.65); Red Cell Distribution Width 12.6 % (12.1-15.1); White Blood Count 9.77 10^3/uL (3.29-11.43)
[2024-06-21 12:43] LABS: Alanine Aminotransferase 41 U/L (0-33); Albumin Level 4.4 g/dL (3.5-5.2); Alkaline Phosphatase 79 U/L (35-105); Anion Gap 16.3 (5-19); Aspartate Amino Transferase 29 U/L (0-32); Blood Urea Nitrogen 11 mg/dL (8-23); Carbon Dioxide 27 mmol/L (22-29); Chloride 99 mmol/L (98-107); Globulin 2.5 g/dL (1.3-4.6); Glomerular Filtration Rate 61.9 mL/min (90-130); Glucose 111 mg/dL (65-115); Osmolality Calculated 286 mOsm/kg (285-295); Potassium 4.3 mmol/L (3.5-5.1); Sodium 138 mmol/L (136-145); Total Bilirubin 0.4 mg/dL (0.15-1.2); Total Protein 6.9 g/dL (6.6-8.7)
== END 2024-06-24 23:59 | disposition home or self-care (01) ==
PROVIDERS: Internal Medicine Medical Oncology; PCP Family Medicine; Referring Provider Surgery; Visit Provider Internal Medicine Hematology & Oncology
DX: Z85.3 Personal history of malignant neoplasm of breast (principal); F17.210 Nicotine dependence, cigarettes, uncomplicated; C50.912 Malignant neoplasm of unspecified site of left female breast
CPT/HCPCS: 36415; 80053; 85025; 99214

== ENCOUNTER 2024-06-26 15:22 | Emergency (ER) | payer MEDICARE, SELFPAY ==
[2024-06-26] VITALS (14 sets, daily range): BP systolic 124–230; BP diastolic 80–120; PULSE 88–113; RESP 16–23; TEMP 36.5; O2SAT 95–100
--- NOTE | 2024-06-26 15:30 | CTR_ITS ---
PROCEDURE INFORMATION: Exam: CT Head Without Contrast Exam date and time: 06/26/2024 3:24 PM Age: 68 years old Clinical indication: Stroke-like symptoms; Altered mental status/memory loss; Additional info: Acute symptoms of stroke TECHNIQUE: Imaging protocol: Computed tomography of the head without contrast. Radiation optimization: All CT scans at this facility use at least one of these dose optimization techniques: automated exposure control; mA and/or kV adjustment per patient size (includes targeted exams where dose is matched to clinical indication); or iterative reconstruction. Other technique: STROKE PROTOCOL was implemented. COMPARISON: No relevant prior studies available. RADIATION DOSE METRICS: Total DLP (mGy-cm): 1083.93 FINDINGS: Brain: Heterogeneous right periventricular hypoattenuation involving the right parieto-occipital and temporal lobe. There is associated hyperattenuating material with Hounsfield units of approximately 100 which may represent ossified material. There is mass effect within the right cerebrum 0.7 cm leftward midline shift at the level of the septum pellucidum. Cerebral ventricles: Effacement of the temporal horn of the right lateral ventricle. No hydrocephalus. Paranasal sinuses: Visualized sinuses are unremarkable. No fluid levels. Mastoid air cells: Visualized mastoid air cells are well aerated. Bones: Unremarkable. No acute fracture. Soft tissues: Unremarkable. CT/CT head thrombolytic 71923 IMPRESSION: Heterogeneous hypoattenuation within the right parieto-occipital and temporal lobe with associated hyperdense material which may represent ossified parenchyma versus contrast. The density of the material is higher than blood products. There is mass effect causing 0.7 cm leftward midline shift. Underlying neoplasm cannot be excluded. Recommend further evaluation with brain MRI if clinically indicated. ASSESSMENT: ASPECTS ([place] Stroke Program Early CT Score) is 10. COMMENT: THIS REPORT CONTAINS FINDINGS THAT MAY BE CRITICAL TO PATIENT CARE. The exam findings were verbally communicated by me to TAMMIE AVENDANO via telephone conference at 4:14 PM CDT on 06/26/2024. The findings were acknowledged and understood.
--- NOTE | 2024-06-26 15:34 | ECG_ITS ---
[facility] Test Date: 2024-06-26 Pat Name: Sunni Iglesias Department: Room: Gender: Female [place]: : 1955 Requested By: Tyron Hernandez Order Number: [id number] Clementine MD: Max Tesfaye M.D. Measurements Intervals [place] Rate: 100 P: 80 NH: 144 QRS: 56 QRSD: 79 T: 60 QT: 326 QTc: 420 Interpretive Statements SINUS TACHYCARDIA Compared to ECG 01/17/2016 17:25:19 Sinus rhythm no longer present Electronically Signed On 06-26-2024 18:07:38 CDT by Max Tesfaye M.D. [id number]
[2024-06-26] MEDS: etomidate 2 mg/mL INJ SDV 10 mL 20 MG IVP (15:40)
[2024-06-26] MEDS: vecuronium 10 mg SDV IVP (15:40)
[2024-06-26] MEDS: nicardipine 20 MG/200 ML PREMIX 100 MG IV (15:47)
--- NOTE | 2024-06-26 15:47 | CTR_ITS ---
PROCEDURE INFORMATION: Exam: CTA Head With Contrast, Arteriography Exam date and time: 06/26/2024 4:03 PM Age: 68 years old Clinical indication: Other: Acute intracranial bleed TECHNIQUE: Imaging protocol: Computed tomographic angiography of the head with contrast. Exam focused on the arteries. 3D rendering (Not supervised by radiologist): MIP and/or 3D reconstructed images were created by the technologist. Radiation optimization: All CT scans at this facility use at least one of these dose optimization techniques: automated exposure control; mA and/or kV adjustment per patient size (includes targeted exams where dose is matched to clinical indication); or iterative reconstruction. Contrast material: OMNI 350; Contrast volume: 100 ml; Contrast route: INTRAVENOUS (IV); COMPARISON: CT head wo con* [id number] 06/26/2024 3:24 PM RADIATION DOSE METRICS: Total DLP (mGy-cm): 388.12 FINDINGS: ANTERIOR CIRCULATION: Right internal carotid artery: Intracranial segment is patent with no significant stenosis. No aneurysm. Right middle cerebral artery: No occlusion or significant stenosis. No aneurysm. Right anterior cerebral artery: No occlusion or significant stenosis. No aneurysm. Left internal carotid artery: Intracranial segment is patent with no significant stenosis. No aneurysm. Left middle cerebral artery: No occlusion or significant stenosis. No aneurysm. Left anterior cerebral artery: No occlusion or significant stenosis. No aneurysm. POSTERIOR CIRCULATION: Right vertebral artery: No occlusion or significant stenosis. No aneurysm. Left vertebral artery: No occlusion or significant stenosis. No aneurysm. Basilar artery: No occlusion or significant stenosis. No aneurysm. 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 Left posterior cerebral artery: No occlusion or significant stenosis. No aneurysm. Veins: Mixing artifact within the proximal left internal jugular vein. Brain: Ossification within the right parieto-occipital and temporal lobe which may be due to chronic hemorrhage. There is mass effect within the right cerebrum 0.7 cm leftward midline shift at the level of the septum pellucidum. Cerebral ventricles: No ventriculomegaly. Bones/joints: No acute fracture. Soft tissues: Unremarkable. COMMENT: THIS REPORT CONTAINS FINDINGS THAT MAY BE CRITICAL TO PATIENT CARE. The exam findings were verbally communicated by me to TAMMIE AVENDANO via telephone conference at 4:51 PM CDT on 06/26/2024. The findings were acknowledged and understood. PROCEDURE INFORMATION: Exam: CTA Neck With Contrast Exam date and time: 06/26/2024 4:03 PM Age: 68 years old Clinical indication: Other: Acute intracranial bleed TECHNIQUE: Imaging protocol: Computed tomographic angiography of the neck with contrast. Exam focused on the cervical segments of the vasculature. 3D rendering (Not supervised by radiologist): MIP and/or 3D reconstructed images were created by the technologist. Radiation optimization: All CT scans at this facility use at least one of these dose optimization techniques: automated exposure control; mA and/or kV adjustment per patient size (includes targeted exams where dose is matched to clinical indication); or iterative reconstruction. Contrast material: OMNI 350; Contrast volume: 100 ml; Contrast route: INTRAVENOUS (IV); COMPARISON: CT head wo con* [id number] 06/26/2024 3:24 PM RADIATION DOSE METRICS: Total DLP (mGy-cm): 388.12 FINDINGS: Tubes, catheters and devices: Endotracheal tube in place. Right common carotid artery: No stenosis. No dissection or occlusion. Right internal carotid artery: No stenosis of the extracranial segment. No dissection or occlusion. Right external carotid artery: No occlusion or stenosis of the origin. Left common carotid artery: No stenosis. No dissection or occlusion. Moderate atherosclerotic calcification. Left internal carotid artery: No stenosis of the extracranial segment. No dissection or occlusion. Left external carotid artery: No occlusion or stenosis of the origin. Right vertebral artery: No stenosis. No dissection or occlusion. Left vertebral artery: No stenosis. No dissection or occlusion. Soft tissues: Normal. No significant soft tissue swelling. Bones/joints: No acute fracture. Other findings: Moderate to severe emphysema. CT/CT angio headneck* [id number] IMPRESSION: 1. There is a prominent right-sided arteriovenous malformation centered within the right parieto-occipital lobe with an apparent feeding artery originating from the right posterior cerebral artery. 2. No large vessel stenosis or occlusion. IMPRESSION: No stenosis or occlusion. REFERENCES: NASCET CRITERIA. The degree of stenosis in the cervical segment of the internal carotid artery is based on NASCET criteria. Normal is no stenosis. Mild is less than 50% stenosis. Moderate is 50-69% stenosis. Severe is 70% to 99% stenosis. Total occlusion is no detectable patent lumen.
[2024-06-26] MEDS: propofol 1,000 MG/100 ML INJ 11.02 MG IV (15:54)
[2024-06-26] MEDS: iohexol 350 mg/mL 500 mL Btl (per mL) IV (16:11)
--- NOTE | 2024-06-26 16:13 | W.ED.NEUROSD ---
HPI - Neuro Symptoms/Deficit General: Chief Complaint: Neuro Symptoms/Deficit Stated Complaint: stroke alert Time Seen by Provider: 06/26/24 15:33 History of Present Illness: 68-year-old female presents emergency room via EMS on a stroke alert. Last known well was around 9 AM although the significant other had commented to the EMS crew that she seemed very groggy from the time she got up. She spent most of the day on the couch and then fell off the couch she was nonresponsive at that point and EMS was called. She was combative with EMS they actually had her wrist/together with [place] on arrival here and had given her Ativan and route. Patient combative very difficult to score in NIH as she is not responding verbally or following any commands. Related Data Home Medications Medication Instructions Recorded Confirmed albuterol sulfate 90 mcg/actuation 2 puff inhalation Q6H PRN 10/28/21 06/21/24 aerosol inhaler (ProAir HFA) aspirin 81 mg tablet,delayed 81 mg PO DAILY 10/28/21 06/21/24 release (Adult Low Dose Aspirin) azelastine 137 mcg (0.1 %) nasal 1 spray intranasal BID 06/14/22 06/21/24 spray alprazolam 0.25 mg tablet (Xanax) 0.25 mg PO TID PRN 06/21/23 06/21/24 atorvastatin 40 mg tablet mg PO 06/21/24 06/21/24 lisinopril 10 mg tablet mg PO 06/21/24 06/21/24 mupirocin 2 % topical ointment topical 06/21/24 06/21/24 propranolol 10 mg tablet mg PO 06/21/24 06/21/24 Previous Rx's Medication Instructions Recorded escitalopram oxalate 10 mg tablet 10 mg PO DAILY #30 tabs 06/21/24 Allergies Allergy/AdvReac Type Severity Reaction Status Date / Time codeine Allergy Unknown Verified 03/18/24 18:02 nitrofurantoin Allergy ALGY-Rash Verified 03/18/24 18:02 Review of Systems General: Reports: ROS unobtainable due to mental status [facility] PFSH: Medical History (Updated 06/26/24 @ 17:21 by Tyron Newberry DO) History of CVA (cerebrovascular accident) Breast cancer, left breast Family History Mother Clotting disorder CAD (coronary artery disease) Hyperlipidemia Hypertension Grandfather CAD (coronary artery disease) Grandmother CAD (coronary artery disease) Family/Other Cancer Maternal Aunt, maternal uncle, and maternal great aunt - Breast cancer Sister Stroke Denies family history of Diabetes Dementia Psychiatric illness Chronic kidney disease (CKD) Suicide Anesthesia complication Bleeding disorder Lung disease Social History Smoking and tobacco/nicotine status: unknown if used tobacco/nicotine Alcohol intake: never NIH stroke score NIHSS: Level Of Consciousness - 1a: 2 Level Of Consciousness Questions - 1b: Neither Correct Level Of Consciousness Commands - 1c: Neither Correct Best Gaze - 2: Forced Deviation Visual Madrigal - 3: Partial Hemianopia (Does not react to visual field challenges from the left side) Facial Palsy - 4: Normal Motor Arm Right - 5: No Drift Motor Arm Left - 5: No Drift Motor Leg Right - 6: No Drift Motor Leg Left - 6: No Drift Limb Ataxia - 7: Absent Sensory - 8: Normal Best Language - 9: Mute; Global Aphasia Dysarthia - 10: Intubated Extinction And Inattention - 11: 2 Score: Total Score: 14 Physical Exam HENMT: COMMON NORMALS: normocephalic, atraumatic and hearing grossly normal bilaterally HEAD & SCALP: normocephalic and atraumatic Resp: COMMON NORMALS: normal respiratory effort, No retractions, No use of accessory muscles and clear to auscultation bilaterally AUSCULTATION: clear to auscultation bilaterally Cardio: COMMON NORMALS: regular rate, regular rhythm and No murmurs present (Cardio) RATE: regular rate RHYTHM: regular rhythm GI: COMMON NORMALS: Soft to palpation and No hepatosplenomegaly present AUSCULTATION: Yes normoactive bowel sounds PALPATION: Yes Soft to palpation, No Tenderness to palpation present (GI), No Guarding due to palpation present (GI) and Yes No hepatosplenomegaly present Extremity: COMMON NORMALS: normal to inspection, capillary refill normal, no clubbing, cyanosis or edema, no calf tenderness and no pedal edema Skin: COMMON NORMALS: no rashes or lesions noted GENERAL SKIN EXAM: no rashes or lesions noted Procedures Intubation sedative: Etomidate Mg Given: 20 paralytic: Vecuronium Mg Given: 10 Laryngoscope: fiber optic video scope ET Tube Size: 8 ET Tube Uncuffed: No Tube Secured Depth (cm): 22 Tube Secured Location: teeth Tube Placement Confirmation: visualized tube passing through cords, equal breath sounds bilaterally and no breath sounds over epigastrium Patient Tolerated Procedure: well Intubation Complications: none Course Vital Signs: Vital signs: Vital Signs Temperature 97.7 F 06/26/24 15:50 Pulse Rate 105 H 06/26/24 17:12 Respiratory Rate 16 06/26/24 16:40 Blood Pressure 130/83 06/26/24 17:12 Pulse Oximetry 100 06/26/24 17:12 Oxygen Delivery Me thod Room Air 06/26/24 15:50 Fraction of Inspir ed Oxygen 50 06/26/24 16:18 MDM - Neuro Symptoms/Deficit Medical Decision Making Patient arrives as a stroke alert story difficult to assess because she is just combative she was actually restrained with Kerlix tied at the wrist by EMS. Patient was brought to the CT suite and scanned which showed a right parietal occipital bleed. She was brought back to the trauma bay and then intubated and started on nicardipine and propofol drips he was in return to the CT suite CTA of the head and neck shows AVM in the area of the bleed there is some midline shift. Patient's blood pressure was controlled by titration with nicardipine and propofol. She had no further complications to be transferred ER to ER to Dr. Valladares at [facility] for neurology will see her there. The CT head and CTA head and neck were forwarded with the crew as well as being uploaded. Medical Records I reviewed the patient's medical records. Lab Data I reviewed the patient's lab results. 06/26/24 16:23 06/26/24 16:[address] 06/26/24 15:30 IMPRESSION: Heterogeneous hypoattenuation within the right parieto-occipital and temporal lobe with associated hyperdense material which may represent ossified parenchyma versus contrast. The density of the material is higher than blood products. There is mass effect causing 0.7 cm leftward midline shift. Underlying neoplasm cannot be excluded. Recommend further evaluation with brain MRI if clinically indicated. ASSESSMENT: ASPECTS ([place] Stroke Program Early CT Score) is 10. COMMENT: THIS REPORT CONTAINS FINDINGS THAT MAY BE CRITICAL TO PATIENT CARE. The exam findings were verbally communicated by me to TYRON NEWBERRY via telephone conference at 4:14 PM CDT on 06/26/2024. The findings were acknowledged and understood. Head/Neck CTA 06/26/24 15:47 IMPRESSION: 1. There is a prominent right-sided arteriovenous malformation centered within the right parieto-occipital lobe with an apparent feeding artery originating from the right posterior cerebral artery. 2. No large vessel stenosis or occlusion. IMPRESSION: No stenosis or occlusion. REFERENCES: NASCET CRITERIA. The degree of stenosis in the cervical segment of the internal carotid artery is based on NASCET criteria. Normal is no stenosis. Mild is less than 50% stenosis. Moderate is 50-69% stenosis. Severe is 70% to 99% stenosis. Total occlusion is no detectable patent lumen. Chest X-Ray 06/26/24 16:25 IMPRESSION: No acute pulmonary disease. Endotracheal tube tip terminates proximally 1.2 cm above the heike. Consider 2 cm retraction is recommended if clinically indicated. COMMENT: THIS REPORT CONTAINS FINDINGS THAT MAY BE CRITICAL TO PATIENT CARE. The exam findings were verbally communicated by me to TYRON NEWBERRY via telephone conference at 4:44 PM CDT on 06/26/2024. The findings were acknowledged and understood. Laboratory Results WBC 12.50 10^3/uL (3.29-11.43) H 06/26/24 16:23 RBC 4.38 10^6/uL (3.85-5.65) 06/26/24 16:23 Hgb 14.70 g/dL (11.27-16.99) 06/26/24 16:23 Hct 46.5 % (36-47) 06/26/24 16:23 MCV 106.2 fl (85-98) H 06/26/24 16:23 MCH 33.6 pg (27-33) H 06/26/24 16:23 MCHC 31.6 g/dL (30-55) 06/26/24 16:23 RDW 12.1 % (12.1-15.1) 06/26/24 16:23 Plt Count 168 10^3/cmm (157-399) 06/26/24 16:23 MPV 10.7 fL (7.4-10.4) H 06/26/24 16:23 Neut % (Auto) 82.3 % 06/26/24 16:23 Lymph % (Auto) 8.0 % 06/26/24 16:23 [place] % (Auto) 8.8 % 06/26/24 16:23 Eos % (Auto) 0.2 % 06/26/24 16:23 Baso % (Auto) 0.2 % 06/26/24 16:23 Neut # (Auto) 10.29 10^3/uL (1.8-7.7) H 06/26/24 16:23 Lymph # (Auto) 1.0 10^3/uL (0.8-4.8) 06/26/24 16:23 [place] # (Auto) 1.1 10^3/uL (0.2-0.9) H 06/26/24 16:23 Eos # (Auto) 0.0 10^3/uL (0.0-0.8) 06/26/24 16:23 Baso # (Auto) 0.0 10^3/uL (0.0-0.1) 06/26/24 16:23 Nucleated RBC % (auto) 0 % 06/26/24 16:23 Nucleated RBCs # 0.0 /100WBC 06/26/24 16:23 PT 13.50 SECONDS (12.1-14.9) 06/26/24 16:23 INR 1.00 (0.8-1.2) 06/26/24 16:23 APTT 25.8 SECONDS (23.9-36.7) 06/26/24 16:23 Sodium 132 mmol/L (136-145) L 06/26/24 16:23 Potassium 3.6 mmol/L (3.5-5.1) 06/26/24 16:23 Chloride 98 mmol/L (98-107) 06/26/24 16:23 Carbon Dioxide 19 mmol/L (22-29) L 06/26/24 16:23 Anion Gap 18.6 (5-19) 06/26/24 16:23 BUN 9 mg/dL (8-23) 06/26/24 16:23 Creatinine 0.7 mg/dL (0.5-0.9) 06/26/24 16:23 GFR Calculation 82.7 mL/min (90-130) L 06/26/24 16:23 Glucose 111 mg/dL (65-115) 06/26/24 16:23 Calculated Osmolality 273 mOsm/kg (285-295) L 06/26/24 16:23 Calcium 8.3 mg/dL (8.5-10.5) L 06/26/24 16:23 Total Bilirubin 0.6 mg/dL (0.15-1.2) 06/26/24 16:23 AST 24 U/L (0-32) 06/26/24 16:23 ALT 17 U/L (0-33) 06/26/24 16:23 Alkaline Phosphatase 63 U/L (35-105) 06/26/24 16:23 Total Protein 5.6 g/dL (6.6-8.7) L 06/26/24 16:23 Albumin 3.4 g/dL (3.5-5.2) L 06/26/24 16:23 Globulin 2.2 g/dL (1.3-4.6) 06/26/24 16:23 Urine Color Yellow (Yellow) 06/26/24 15:53 Urine Appearance Clear (CLEAR) 06/26/24 15:53 Urine pH 7.0 (5-7) 06/26/24 15:53 Ur Specific [place] 1.010 (1.005-1.030) 06/26/24 15:53 Urine Protein Trace (Negative) A 06/26/24 15:53 Urine Glucose (UA) Negative (Normal) 06/26/24 15:53 Urine Ketones Negative (Negative) 06/26/24 15:53 Urine Blood 1+ (Negative) A 06/26/24 15:53 Urine Nitrate Negative (Negative) 06/26/24 15:53 Urine Bilirubin Negative (Negative) 06/26/24 15:53 Urine Urobilinogen 1.0 mg/dL (Negative) 06/26/24 15:53 Ur Leukocyte Esterase Negative (Negative) 06/26/24 15:53 Amorphous Sediment Not Reportable 06/26/24 15:53 Urine Opiates Screen Negative ng/mL (Negative) 06/26/24 15:53 Ur Barbiturates Screen Negative ng/mL (Negative) 06/26/24 15:53 Ur Phencyclidine Scrn Negative ng/mL (Negative) 06/26/24 15:53 Ur Amphetamines Screen Negative ng/mL (Negative) 06/26/24 15:53 U Benzodiazepines Scrn Negative ng/mL (Negative) 06/26/24 15:53 Urine Cocaine Screen Negative ng/mL (Negative) 06/26/24 15:53 U Marijuana (THC) Screen Negative ng/mL (Negative) 06/26/24 15:53 All radiology interpretation(s) finalized by discharge Critical Care Time Critical Care Time: Critical Care Time: Yes Total Critical Care Time: 40 Attestation: The high probability of a clinically significant, sudden or life threatening deterioration of the patient's neurologic vascular system(s) required my full and direct attention, intervention and personal management. The critical care time is as shown. This time is in addition to time spent performing any reported procedures but includes the following: [x] Data and vital sign review and interpretation [x] Patient assessment, examination and intervention [x] Documentation [x] Medication orders and management Discharge Plan Discharge Patient Disposition: Xfer Short-Term Hosp Clinical Impression: Intracranial hemorrhage, Arteriovenous malformation of brain, Accelerated hypertension Condition: Stable Referrals: Rivera Garcia [Primary Care Provider] - Coding Level of Care Code ED Stamping Mill Tender for Tahira Barbosa
--- NOTE | 2024-06-26 16:25 | XRR_ITS ---
PROCEDURE INFORMATION: Exam: XR Chest Exam date and time: 06/26/2024 4:27 PM Age: 68 years old Clinical indication: Device placement; Ett placement (vent status); Additional info: Dyspnea/cough TECHNIQUE: Imaging protocol: Radiologic exam of the chest. Views: 1 view. COMPARISON: CT angio headneck* [id number] 06/26/2024 4:03 PM FINDINGS: Tubes, catheters and devices: Endotracheal tube tip terminates proximally 1.2 cm above the heike. Enteric tube tip overlies the expected region of the stomach. Lungs: The lungs are adequately expanded. No focal consolidations or pulmonary edema. Emphysema. Pleural spaces: No pleural effusions or pneumothorax. Heart/Mediastinum: No cardiomegaly. Vasculature: Atherosclerotic calcifications. Bones/joints: No acute fractures. XR/XR chest 1V portable [id number] IMPRESSION: No acute pulmonary disease. Endotracheal tube tip terminates proximally 1.2 cm above the heike. Consider 2 cm retraction is recommended if clinically indicated. COMMENT: THIS REPORT CONTAINS FINDINGS THAT MAY BE CRITICAL TO PATIENT CARE. The exam findings were verbally communicated by me to TAMMIE AVENDANO via telephone conference at 4:44 PM CDT on 06/26/2024. The findings were acknowledged and understood.
--- NOTE | 2024-06-26 16:25 | PC.NURSE ---
STROKE ALERT CALLED AT 1505. WHEN PT ARRIVED, PT WAS UNABLE TO FOLLOW COMMANDS SO STROKE ASSESSMENT WAS UNABLE TO BE COMPLETED.
[2024-06-26 16:26] LABS: Charge for UA Resulting for Rev
[2024-06-26 16:27] LABS: Basophils % 0.2 %; Eosinophils % 0.2 %; Hematocrit 46.5 % (36-47); Mean Corpuscular HGB Conc 31.6 g/dL (30-55); Mean Corpuscular Hemoglobin 33.6 pg (27-33); Mean Corpuscular Volume 106.2 fl (85-98); Mean Platelet Volume 10.7 fL (7.4-10.4); Monocytes # 1.1 10^3/uL (0.2-0.9); Monocytes % 8.8 %; Neutrophils # 10.29 10^3/uL (1.8-7.7); Neutrophils % 82.3 %; Nucleated Red Blood Cells % 0 %; Platelet Count 168 10^3/cmm (157-399); Red Blood Count 4.38 10^6/uL (3.85-5.65); Red Cell Distribution Width 12.1 % (12.1-15.1)
[2024-06-26 16:38] LABS: Amphetamines Screen Urine Negative (Negative); Barbiturates Screen Urine Negative (Negative); Benzodiazepines Screen Urine Negative (Negative); Cocaine Screen Urine Negative (Negative); Opiate Screen Urine Negative (Negative); PCP Screen Urine Negative (Negative); THC Screen Urine Negative (Negative)
[2024-06-26 16:41] LABS: Partial Thromboplastin Time 25.8 SECONDS (23.9-36.7)
--- NOTE | 2024-06-26 16:44 | PC.NURSE ---
this nurse pulled extra Nicardipine bag to send with Air Evac; Leticia Cox RN pulled extra Propofol gtt per verbal order of Dr. Newberry to send with Air Evac d/t infusion rates.
[2024-06-26 16:48] LABS: Alanine Aminotransferase 17 U/L (0-33); Albumin Level 3.4 g/dL (3.5-5.2); Alkaline Phosphatase 63 U/L (35-105); Blood Urea Nitrogen 9 mg/dL (8-23); Calcium 8.3 mg/dL (8.5-10.5); Carbon Dioxide 19 mmol/L (22-29); Chloride 98 mmol/L (98-107); Creatinine Clr Calc Pharmacy 62.0556; Globulin 2.2 g/dL (1.3-4.6); Glomerular Filtration Rate 82.7 mL/min (90-130); Glucose 111 mg/dL (65-115); Osmolality Calculated 273 mOsm/kg (285-295); Sodium 132 mmol/L (136-145); Total Bilirubin 0.6 mg/dL (0.15-1.2); Total Protein 5.6 g/dL (6.6-8.7)
[2024-06-26 16:48] LABS: Bilirubin Urine Negative (Negative); Blood Urine 1+ (Negative); Glucose Urine UA Negative (Normal); Ketones Urine Negative (Negative); Leukocyte Esterase Urine Negative (Negative); Nitrate Urine Negative (Negative); Protein Urine Trace (Negative); Urine Appearance Clear (CLEAR); Urine Color Yellow (Yellow)
[2024-06-26 17:02] LABS: Anion Gap 18.6 (5-19); Aspartate Amino Transferase 24 U/L (0-32); Potassium 3.6 mmol/L (3.5-5.1)
[2024-06-26 17:17] LABS: RBC Urine 0-4 /hpf (0-2); Squamous Epithelial Cell Urine 0-4 /hpf (0-5); WBC Urine 0-4 /hpf (0-5)
[2024-06-26 17:18] LABS: Amorphous Sediment Urine 1+ /hpf; Bacteria Urine TRACE /hpf; Coarse Granular Casts Urine 0-4 /lpf; Fine Granular Casts Urine 0-4 /lpf; Mucus Urine 1+ /hpf
== END 2024-06-26 17:14 | disposition short-term general hospital (02) ==
PROVIDERS: Emergency Provider Family Medicine; PCP Family Medicine
DX: I62.9 Nontraumatic intracranial hemorrhage, unspecified (principal); Q28.2 Arteriovenous malformation of cerebral vessels; I10 Essential (primary) hypertension; Z86.73 Personal history of transient ischemic attack (TIA), and cerebral infarction without residual deficits; Z85.3 Personal history of malignant neoplasm of breast
CPT/HCPCS: 36415; 51702; 70450; 70496; 70498; 71045; 80053; 80306; 81003; 81015; 85025; 85610; 85730; 93005; 94002; 96365; 96367; 99291; 99292; J2704; J3490

== ENCOUNTER 2024-07-17 12:28 | Observation (INO) | payer MEDICARE, SELFPAY ==
[2024-07-17] VITALS (12 sets, daily range): BP systolic 82–170; BP diastolic 49–89; PULSE 68–95; RESP 16–18; TEMP 36.3–36.8; O2SAT 92–98; BMI 21.7
--- NOTE | 2024-07-17 12:33 | CTR_ITS ---
PROCEDURE INFORMATION: Exam: CT Head Without Contrast Exam date and time: 07/17/2024 12:54 PM Age: 69 years old Clinical indication: Altered mental status/memory loss; Additional info: Encephalopathy, altered mental status TECHNIQUE: Imaging protocol: Computed tomography of the head without contrast. Radiation optimization: All CT scans at this facility use at least one of these dose optimization techniques: automated exposure control; mA and/or kV adjustment per patient size (includes targeted exams where dose is matched to clinical indication); or iterative reconstruction. COMPARISON: CT angio headneck* [id number] 06/26/2024 4:03 PM RADIATION DOSE METRICS: Total DLP (mGy-cm): 756 FINDINGS: Brain: Increased hypodensity at the right basal ganglia, specifically at the level of the right thalamus as compared with prior. Stable right to left midline shift . No large intracranial hemorrhage or brain herniation. Cerebral ventricles: Stable mass effect upon the posterior horn of the right lateral ventricle. Stable ex vacuo ventriculomegaly. Paranasal sinuses: Visualized sinuses are unremarkable. No fluid levels. Mastoid air cells: Visualized mastoid air cells are well aerated. Bones: Right temporal craniotomy without complications. Soft tissues: Unremarkable. Vasculature: Stable linear calcifications throughout the right parietal, occipital, and temporal lobes which are of chronic etiology and likely related to an underlying known arteriovenous malformation at this level. CT/CT head wo con* [id number] IMPRESSION: 1. Increased hypodensity at the right basal ganglia, specifically at the level of the right thalamus as compared with prior. Suspicious for evolving, now chronic ischemic changes. 2. No large intracranial hemorrhage or brain herniation. COMMENTS: Consider follow-up MRI.
--- NOTE | 2024-07-17 12:33 | ECG_ITS ---
[facility] Test Date: 2024-07-17 Pat Name: Sunni Iglesias Department: Room: 279 Gender: Female Casing Trimmer: : 1955 Requested By: Lizz Hernandez Order Number: [id number] Spring MD: Max Tesfaye M.D. Measurements Intervals [place] Rate: 82 P: 97 MS: 145 QRS: 10 QRSD: 74 T: -5 QT: 344 QTc: 403 Interpretive Statements SINUS RHYTHM POSSIBLE LEFT ATRIAL ENLARGEMENT [-0.1mV P-WAVE IN V1/V2] Compared to ECG 06/26/2024 15:45:27 Sinus tachycardia no longer present Electronically Signed On 07-18-2024 16:57:08 CDT by Max Tesfaye M.D. [id number] f
--- NOTE | 2024-07-17 12:33 | XRR_ITS ---
PROCEDURE INFORMATION: Exam: XR Chest Exam date and time: 07/17/2024 12:38 PM Age: 69 years old Clinical indication: Other: Weakness TECHNIQUE: Imaging protocol: Radiologic exam of the chest. Views: 1 view. COMPARISON: CR (CHEST, ) 06/26/2024 4:27 PM FINDINGS: Airway: Airways are patent. Lungs: Lung hyperlucency, favoring emphysema. Bilateral apical capping/scarring. No consolidations. Pleural spaces: No pleural effusions or pneumothorax. Heart/Mediastinum: No cardiomegaly. Vasculature: Calcified aortic knob. Bones/joints: No acutely displaced fractures. No aggressive osseous lesions. Soft tissues: Surgical clips in the left axilla. Chronic appearing calcifications in the left axilla. XR/XR chest 1V portable [id number] IMPRESSION: No acute thoracic pathology.
--- NOTE | 2024-07-17 12:46 | W.ED.AMS ---
HPI - Altered Mental Status General: Chief Complaint: Altered Mental Status Stated Complaint: decreased LOC Time Seen by Provider: 07/17/24 12:30 History of Present Illness: 69-year-old female who presents to the emergency room by ambulance with failure to thrive/weakness/not eating. She was recently diagnosed with an inoperable brain tumor. Initially thought was a stroke but then she was diagnosed with a tumor. Family is concerned that she has not been eating and she seems more confused than usual. No known fevers. No vomiting. Related Data Home Medications Medication Instructions Recorded Confirmed albuterol sulfate 90 mcg/actuation 2 puff inhalation Q6H 10/28/21 07/17/24 aerosol inhaler (ProAir HFA) aspirin 81 mg tablet,delayed 81 mg PO DAILY 10/28/21 07/17/24 release (Adult Low Dose Aspirin) atorvastatin 40 mg tablet 40 mg PO DAILY 06/21/24 07/17/24 lisinopril 10 mg tablet 10 mg PO DAILY 06/21/24 07/17/24 acetaminophen 325 mg tablet 325 mg PO Q6H PRN Pain 07/17/24 07/17/24 (Tylenol) dexamethasone 4 mg tablet 2 mg PO DAILY 07/17/24 07/17/24 dexamethasone 4 mg tablet 2 mg PO TID 07/17/24 07/17/24 dexamethasone 4 mg tablet 4 mg PO BID 07/17/24 07/17/24 dexamethasone 4 mg tablet 4 mg PO TID 07/17/24 07/17/24 escitalopram oxalate 10 mg tablet 5 mg PO QPM 07/17/24 07/17/24 fluticasone propionate 50 1 spray intranasal Q12H 07/17/24 07/17/24 mcg/actuation nasal spray,suspension hydrocodone 5 mg-acetaminophen 325 1 tab PO Q6H 07/17/24 07/17/24 mg tablet levetiracetam 500 mg tablet 500 mg PO BID 07/17/24 07/17/24 lorazepam 0.5 mg tablet (Ativan) 0.5 mg PO TID PRN Anxiety 07/17/24 07/17/24 magnesium oxide 500 mg capsule 500 mg PO DAILY 07/17/24 07/17/24 potassium gluconate 595 mg (99 mg) 595 mg PO DAILY 07/17/24 07/17/24 tablet quetiapine 50 mg tablet 50 mg PO QPM 07/17/24 07/17/24 Allergies Allergy/AdvReac Type Severity Reaction Status Date / Time codeine Allergy Unknown Verified 03/18/24 18:02 nitrofurantoin Allergy ALGY-Rash Verified 03/18/24 18:02 [facility] ED PFS: Medical History (Updated 07/17/24 @ 15:59 by Lizz Painter MD) History of CVA (cerebrovascular accident) Breast cancer, left breast Family History Mother Clotting disorder CAD (coronary artery disease) Hyperlipidemia Hypertension Grandfather CAD (coronary artery disease) Grandmother CAD (coronary artery disease) Family/Other Cancer Maternal Aunt, maternal uncle, and maternal great aunt - Breast cancer Sister Stroke Denies family history of Diabetes Dementia Psychiatric illness Chronic kidney disease (CKD) Suicide Anesthesia complication Bleeding disorder Lung disease Social History Smoking and tobacco/nicotine status: unknown if used tobacco/nicotine Alcohol intake: never Physical Exam Narrative: General: Alert Skin: Warm, dry. Head: Normocephalic, atraumatic. Neck: Supple, trachea midline. Eye: Extraocular movements are intact. Ears, nose, mouth and throat: Dry oral mucosa Cardiovascular: Regular, Normal peripheral perfusion. Respiratory: Lungs are clear to auscultation, respirations are non-labored, breath sounds are equal, Symmetrical chest wall expansion. Gastrointestinal: Soft, Nontender, Non distended Musculoskeletal: Normal ROM, no deformity. Neurological: Patient has no obvious focal motor deficits at this time but she does seem somewhat confused. She does seem to recognize her . Psychiatric: Unable to assess Course Vital Signs: Vital signs: Vital Signs Temperature 98.3 F 07/17/24 12:29 Pulse Rate 72 07/17/24 12:29 Respiratory Rate 16 07/17/24 15:13 Blood Pressure 170/89 07/17/24 15:13 Pulse Oximetry 98 07/17/24 15:13 Oxygen Delivery Me thod Room Air 07/17/24 12:29 MDM - Altered Mental Status Medical Decision Making Medical decision making: Differential diagnosis including but not limited to and based on the above HPI, review of systems and physical exam: In this patient with altered mental status: Stroke. Hypoglycemia. Metabolic encephalopathy. Infections such as pneumonia, urinary tract infection, Covid-19, Influenza. Electrolyte abnormalities such as hypernatremia. Renal failure / uremia. Hepatic encephalopathy. Hypoxemia. Hypercapnic respiratory failure. Psychosis. Drug or alcohol intoxication. Medication overdose. Orders placed to evaluate differential diagnosis based on the above differential, HPI and physical exam EKG: Time 1233. Rate 82. Normal sinus rhythm, No ST-T changes, no ectopy, normal TN & QRS intervals, This was reviewed and interpreted by myself the ER physician at 1235 Chest x-ray: No acute process. No infiltrate. No pneumothorax. This was reviewed and interpreted by myself the ER physician. CT of the head without contrast: Worsening disease/appearance. Read as stroke but apparently this is actually a glioblastoma. Lab Review: Laboratory results were reviewed and interpreted by myself the emergency room physician. No leukocytosis. No anemia. Patient's BUN is considerably elevated and her sodium is down a bit. BUN is 29 today. This would indicate dehydration. Also she has some low normal blood pressures. Saline is being given. Also some IV Decadron at this time. Consultation: I called transfer center at [facility]. I was able to get pathology. Apparently this is a glioblastoma. IDH wild-type. INBOUND CUSTOMER SERVICE AGENT WHO grade 4. Hypercellular glial tissue with necrosis and vascular proliferation. Consultation: I spoke with Dr. Myers with the oncology service at [facility]. He does think the patient would benefit from temozolomide therapy and radiation therapy possibly, however her functional status is questionable for this. He does agree with consulting oncology here. There are no beds at [facility] at this time. They do say that if transfer is needed and beds become available they would accept her. Consultation: I spoke with Dr. Morales with oncology here. He recommends admission and will evaluate the patient for possible temozolomide therapy and radiation therapy. Consultation: I spoke with Dr. Pacheco who is on-call for the hospitalist service here and he agrees to admission. I reviewed the patient's medical record. Reexamination: Patient remains unchanged. She does move around in bed and interacts with her . I discussed findings with family. That she has a glioblastoma and this is quite concerning. This has a very poor prognosis. Discussed plan for admission of the hospital. Assessment and plan: Glioblastoma Dehydration Weakness ?IV Decadron and IV fluids here in the emergency room. -I discussed the patient with the hospitalist on-call who is admitting the patient. - Discussed findings and plan with patient. Answered any questions. - All laboratory values were reviewed and interpreted personally by myself, the ER physician - All imaging was reviewed and interpreted personally by myself, the ER physician. - Evaluation and treatment of this problem were appropriate in the emergency setting Lab Data 07/17/24 12:18 07/17/24 12:18 Radiology Impressions Chest X-Ray 07/17/24 12:33 IMPRESSION: No acute thoracic pathology. Head CT 07/17/24 12:33 IMPRESSION: 1. Increased hypodensity at the right basal ganglia, specifically at the level of the right thalamus as compared with prior. Suspicious for evolving, now chronic ischemic changes. 2. No large intracranial hemorrhage or brain herniation. COMMENTS: Consider follow-up MRI. Laboratory Results WBC 9.78 10^3/uL (3.29-11.43) 07/17/24 12:18 RBC 4.45 10^6/uL (3.85-5.65) 07/17/24 12:18 Hgb 15.10 g/dL (11.27-16.99) 07/17/24 12:18 Hct 44.2 % (36-47) 07/17/24 12:18 MCV 99.3 fl (85-98) H 07/17/24 12:18 MCH 33.9 pg (27-33) H 07/17/24 12:18 MCHC 34.2 g/dL (30-55) 07/17/24 12:18 RDW 13.0 % (12.1-15.1) 07/17/24 12:18 Plt Count 168 10^3/cmm (157-399) 07/17/24 12:18 MPV 11.1 fL (7.4-10.4) H 07/17/24 12:18 Neut % (Auto) 86.0 % 07/17/24 12:18 Lymph % (Auto) 5.3 % 07/17/24 12:18 [place] % (Auto) 7.6 % 07/17/24 12:18 Eos % (Auto) 0.0 % 07/17/24 12:18 Baso % (Auto) 0.2 % 07/17/24 12:18 Neut # (Auto) 8.41 10^3/uL (1.8-7.7) H 07/17/24 12:18 Lymph # (Auto) 0.5 10^3/uL (0.8-4.8) L 07/17/24 12:18 [place] # (Auto) 0.7 10^3/uL (0.2-0.9) 07/17/24 12:18 Eos # (Auto) 0.0 10^3/uL (0.0-0.8) 07/17/24 12:18 Baso # (Auto) 0.0 10^3/uL (0.0-0.1) 07/17/24 12:18 Nucleated RBC % (auto) 0 % 07/17/24 12:18 Nucleated RBCs # 0.0 /100WBC 07/17/24 12:18 Specimen Type Arterial 07/17/24 13:05 Sample Site Radial, left 07/17/24 13:05 ABG pH 7.44 (7.35-7.45) 07/17/24 13:05 ABG pCO2 35.3 mmHg (35-45) 07/17/24 13:05 ABG pO2 63.2 mmHg (80.0-100.0) L 07/17/24 13:05 ABG PO2/FiO2 Ratio 300 07/17/24 13:05 ABG HCO3 23.8 mmol/L (22-26) 07/17/24 13:05 ABG O2 Saturation 94.2 07/17/24 13:05 ABG Base Excess 0.1 mmol/L (-2.0-2.0) 07/17/24 13:05 Elias Test Pos 07/17/24 13:05 A-a O2 Gradient 5.4 mmHg (5-10) 07/17/24 13:05 Hematocrit 45.5 % (37-47) 07/17/24 13:05 Hgb O2 Saturation 91.7 % (95-100) L 07/17/24 13:05 Carboxyhemoglobin 1.8 %THgb (0.4-20.1) 07/17/24 13:05 Methemoglobin 0.9 % (0.4-1.5) 07/17/24 13:05 Total Hemoglobin 14.8 g/dL (12-16) 07/17/24 13:05 Sodium 132.0 mmol/L (131-143) 07/17/24 13:05 Potassium 3.8 mmol/L (3.5-5.0) 07/17/24 13:05 Glucose 87.0 mg/dL (70-115) 07/17/24 13:05 Ionized Calcium 1.2 mmol/L (1.1-1.4) 07/17/24 13:05 O2 Delivery Device Room air 07/17/24 13:05 FiO2 21.0 % 07/17/24 13:05 Kitchenwhere Maker ID [place] 07/17/24 13:05 Sodium 130 mmol/L (136-145) L 07/17/24 12:18 Potassium 4.6 mmol/L (3.5-5.1) 07/17/24 12:18 Chloride 97 mmol/L (98-107) L 07/17/24 12:18 Carbon Dioxide 22 mmol/L (22-29) 07/17/24 12:18 Anion Gap 15.6 (5-19) 07/17/24 12:18 BUN 29 mg/dL (8-23) H 07/17/24 12:18 Creatinine 0.6 mg/dL (0.5-0.9) 07/17/24 12:18 GFR Calculation Not Reportable 07/17/24 12:18 Glucose 85 mg/dL (65-115) 07/17/24 12:18 Calculated Osmolality 275 mOsm/kg (285-295) L 07/17/24 12:18 Lactic Acid 0.9 mmol/L (0.5-2.2) 07/17/24 12:18 Calcium 8.7 mg/dL (8.5-10.5) 07/17/24 12:18 Total Bilirubin 1.2 mg/dL (0.15-1.2) 07/17/24 12:18 AST 34 U/L (0-32) H 07/17/24 12:18 ALT 46 U/L (0-33) H 07/17/24 12:18 Alkaline Phosphatase 76 U/L (35-105) 07/17/24 12:18 C-Reactive Protein 3.0 mg/L (0.0-4.9) 07/17/24 12:18 Total Protein 6.0 g/dL (6.6-8.7) L 07/17/24 12:18 Albumin 3.5 g/dL (3.5-5.2) 07/17/24 12:18 Globulin 2.5 g/dL (1.3-4.6) 07/17/24 12:18 Procalcitonin 0.05 ng/mL (0-0.5) 07/17/24 12:18 Urine Color Yellow (Yellow) 07/17/24 15:03 Urine Appearance Clear (CLEAR) 07/17/24 15:03 Urine pH 7.0 (5-7) 07/17/24 15:03 Ur Specific [place] 1.018 (1.005-1.030) 07/17/24 15:03 Urine Protein Negative (Negative) 07/17/24 15:03 Urine Glucose (UA) Negative (Normal) 07/17/24 15:03 Urine Ketones Negative (Negative) 07/17/24 15:03 Urine Blood 1+ (Negative) A 07/17/24 15:03 Urine Nitrate Negative (Negative) 07/17/24 15:03 Urine Bilirubin Negative (Negative) 07/17/24 15:03 Urine Urobilinogen 1.0 mg/dL (Negative) 07/17/24 15:03 Ur Leukocyte Esterase Negative (Negative) 07/17/24 15:03 Urine RBC 11-20 /hpf (0-2) H 07/17/24 15:03 Urine WBC 0-5 /hpf (0-5) 07/17/24 15:03 Ur Squamous Epith Cells 0-5 /hpf (0-5) 07/17/24 15:03 Amorphous Sediment Not Reportable 07/17/24 15:03 Urine Bacteria None seen /hpf (NONE) 07/17/24 15:03 Hyaline Casts 1.21 /lpf 07/17/24 15:03 All radiology interpretation(s) finalized by discharge Discharge Plan Discharge Patient Disposition: Admitted As Inpatient Clinical Impression: Glioblastoma, Dehydration Condition: Stable Coding Level of Care Code ED Mail Distribution Scheme Examiner for Tahira Barbosa
[2024-07-17] MEDS: sodium chloride 0.9% 1,000 ML 999 ML IV (12:50)
[2024-07-17 12:58] LABS: Basophils % 0.2 %; Hematocrit 44.2 % (36-47); Lymphocytes # 0.5 10^3/uL (0.8-4.8); Lymphocytes % 5.3 %; Mean Corpuscular HGB Conc 34.2 g/dL (30-55); Mean Corpuscular Hemoglobin 33.9 pg (27-33); Mean Corpuscular Volume 99.3 fl (85-98); Mean Platelet Volume 11.1 fL (7.4-10.4); Monocytes # 0.7 10^3/uL (0.2-0.9); Monocytes % 7.6 %; Neutrophils # 8.41 10^3/uL (1.8-7.7); Nucleated Red Blood Cells % 0 %; Platelet Count 168 10^3/cmm (157-399); Red Blood Count 4.45 10^6/uL (3.85-5.65); White Blood Count 9.78 10^3/uL (3.29-11.43)
[2024-07-17 13:16] LABS: ABG PCO2 35.3 mmHg (35-45); ABG PH Result 7.44 (7.35-7.45); Alveolar-Arterial Oxygen Gradi 5.4 mmHg (5-10); Arterial Blood Gas Hematocrit 45.5 % (37-47); Base Excess ABG 0.1 mmol/L (-2.0-2.0); Blood Gas Allen Test Pos; Blood Gas Operator Identificat WALCI; Blood Gas Sample Site Radial, left; Blood Gas Sample Type Arterial; Carboxyhemoglobin 1.8 %THgb (0.4-20.1); HCO3 ABG 23.8 mmol/L (22-26); HGB O2 Sat 91.7 % (95-100); Ionized Calcium Level - ABG 1.2 mmol/L (1.1-1.4); Methemoglobin 0.9 % (0.4-1.5); Oxygen Device ROOM AIR; Oxygen Saturation ABG 94.2; PO2 ABG 63.2 mmHg (80.0-100.0); PO2 FiO2 Ratio Arterial Blood 300; Potassium Level - ABG 3.8 mmol/L (3.5-5.0); Total Hemoglobin 14.8 g/dL (12-16)
[2024-07-17 13:23] LABS: Albumin Level 3.5 g/dL (3.5-5.2); Alkaline Phosphatase 76 U/L (35-105); Blood Urea Nitrogen 29 mg/dL (8-23); Calcium 8.7 mg/dL (8.5-10.5); Carbon Dioxide 22 mmol/L (22-29); Chloride 97 mmol/L (98-107); Creatinine Clr Calc Pharmacy 59.3216; Globulin 2.5 g/dL (1.3-4.6); Glucose 85 mg/dL (65-115); Lactic Sepsis W/Reflex 0.9 mmol/L (0.5-2.2); Osmolality Calculated 275 mOsm/kg (285-295); Sodium 130 mmol/L (136-145); Total Bilirubin 1.2 mg/dL (0.15-1.2)
[2024-07-17 13:26] LABS: Alanine Aminotransferase 46 U/L (0-33); Anion Gap 15.6 (5-19); Aspartate Amino Transferase 34 U/L (0-32); Potassium 4.6 mmol/L (3.5-5.1)
[2024-07-17 13:28] LABS: Procalcitonin 0.05 ng/mL (0-0.5)
[2024-07-17 15:14] LABS: Bilirubin Urine Negative (Negative); Blood Urine 1+ (Negative); Glucose Urine UA Negative (Normal); Ketones Urine Negative (Negative); Leukocyte Esterase Urine Negative (Negative); Nitrate Urine Negative (Negative); Protein Urine Negative (Negative); Specific Gravity, Urine 1.018 (1.005-1.030); Urine Appearance Clear (CLEAR); Urine Color Yellow (Yellow)
[2024-07-17 15:19] LABS: Bacteria Urine None Seen /hpf; Hyaline Casts Urine 1.21 /lpf; Squamous Epithelial Cell Urine 0-5 /hpf (0-5); WBC Urine 0-5 /hpf (0-5)
[2024-07-17] MEDS: dexamethasone 10 mg/mL INJ IVP (15:39)
--- NOTE | 2024-07-17 16:18 | PM.HP ---
Providers/Chief Complaint Primary Care Provider: Rivera Garcia Chief Complaint: decreased LOC History of Present Illness Sunni Iglesias is a 69 year old female recent diagnosis of brain tumor, I am still waiting records, but ER provider was able to speak to [facility] and he was told that it was glioblastoma, currently at long-term care facility, who presents due to weakness, fatigue, altered mental status, poor appetite. Currently patient alert to person, to place not to time she can follow commands, she has no specific complaints. According to patient's at bedside, patient has had a gradual decline over the last 3 months, he tells me that she has had multiple head CTs, had MRIs. There was concerns for strokes so she has had many imaging studies done. Back in June 26 patient was transferred to [facility] for concerns for hypotension within the right parietal occipital and temporal lobe associate with hyperdense material which may represent ossified parenchyma versus contrast, causing mass effect, underlying neoplasm not excluded. Initially family tells me there is was concerns for intracranial bleed, but when they did further imaging at [facility], they were told that she had a brain tumor. She had a brain biopsy, family is awaiting results of brain biopsy. She is currently at long-term care facility family tells me that she has had increased confusion, increased weakness, poor appetite, no recent falls. Patient again has no specific complaints, denies any headache, no blurry vision, no nausea, no vomiting family does report poor appetite, family does tell me that after the liter of fluid that she received her mentation has significantly improved, no reported seizure-like episodes she denies any headache, no blurry vision, denies any focal weakness Review of Systems Const: Denies: fever(s) Card: Denies: chest pain Resp: Denies: dyspnea GI: Denies: abdominal pain Medications/Allergies Home Medications Medication Instructions Recorded Confirmed Last Taken Type albuterol sulfate 90 mcg/actuation 2 puff inhalation Q6H 10/28/21 07/17/24 Unknown History aerosol inhaler (ProAir HFA) aspirin 81 mg tablet,delayed 81 mg PO DAILY 10/28/21 07/17/24 Unknown History release (Adult Low Dose Aspirin) atorvastatin 40 mg tablet 40 mg PO DAILY 06/21/24 07/17/24 Unknown History lisinopril 10 mg tablet 10 mg PO DAILY 06/21/24 07/17/24 Unknown History acetaminophen 325 mg tablet 325 mg PO Q6H PRN Pain 07/17/24 07/17/24 Unknown History (Tylenol) dexamethasone 4 mg tablet 2 mg PO DAILY 07/17/24 07/17/24 Unknown History dexamethasone 4 mg tablet 2 mg PO TID 07/17/24 07/17/24 Unknown History dexamethasone 4 mg tablet 4 mg PO BID 07/17/24 07/17/24 Unknown History dexamethasone 4 mg tablet 4 mg PO TID 07/17/24 07/17/24 Unknown History escitalopram oxalate 10 mg tablet 5 mg PO QPM 07/17/24 07/17/24 07/16/24 History fluticasone propionate 50 1 spray intranasal Q12H 07/17/24 07/17/24 Unknown History mcg/actuation nasal spray,suspension hydrocodone 5 mg-acetaminophen 325 1 tab PO Q6H 07/17/24 07/17/24 Unknown History mg tablet levetiracetam 500 mg tablet 500 mg PO BID 07/17/24 07/17/24 Unknown History lorazepam 0.5 mg tablet (Ativan) 0.5 mg PO TID PRN Anxiety 07/17/24 07/17/24 07/16/24 History magnesium oxide 500 mg capsule 500 mg PO DAILY 07/17/24 07/17/24 Unknown History potassium gluconate 595 mg (99 mg) 595 mg PO DAILY 07/17/24 07/17/24 Unknown History tablet quetiapine 50 mg tablet 50 mg PO QPM 07/17/24 07/17/24 Unknown History Allergies Allergy/AdvReac Type Severity Reaction Status Date / Time codeine Allergy Unknown Verified 03/18/24 18:02 nitrofurantoin Allergy ALGY-Rash Verified 03/18/24 18:02 PFSH Acute PFSH: Medical History History of CVA (cerebrovascular accident) Breast cancer, left breast Family History Mother Clotting disorder CAD (coronary artery disease) Hyperlipidemia Hypertension Grandfather CAD (coronary artery disease) Grandmother CAD (coronary artery disease) Family/Other Cancer Maternal Aunt, maternal uncle, and maternal great aunt - Breast cancer Sister Stroke Denies family history of Diabetes Dementia Psychiatric illness Chronic kidney disease (CKD) Suicide Anesthesia complication Bleeding disorder Lung disease Social History Smoking and tobacco/nicotine status: unknown if used tobacco/nicotine Alcohol intake: never Vitals/I&O/Wt Last Vital Signs Temp 98.3 F 07/17/24 12:29 Pulse 72 07/17/24 12:29 Resp 16 07/17/24 15:13 BP 170/89 07/17/24 15:13 Pulse Ox 98 07/17/24 15:13 O2 Del Method Room Air 07/17/24 12:29 Weight last 48 hrs Weight 56.699 kg Physical Exam Const: COMMON NORMALS: no acute distress ORIENTATION/CONSCIOUSNESS: Yes awake, Yes oriented to person and Yes oriented to place; not oriented to time HENMT: COMMON NORMALS: normocephalic HEAD & SCALP: normocephalic Eye: COMMON NORMALS: Equal, round and reactive pupils present Resp: COMMON NORMALS: normal respiratory effort, No retractions, No use of accessory muscles and clear to auscultation bilaterally AUSCULTATION: clear to auscultation bilaterally Cardio: COMMON NORMALS: regular rate, regular rhythm, S1 normal heart sound present and S2 normal heart sound present RATE: regular rate RHYTHM: regular rhythm HEART SOUNDS: S1 normal heart sound present and S2 normal heart sound present GI: COMMON NORMALS: Normal to inspection, nondistended, normoactive bowel sounds present, Soft to palpation and non-tender Extremity: COMMON NORMALS: no calf tenderness and no pedal edema Neuro: COMMON NORMALS: CN's II-XII intact bilaterally and moves all extremities OTHER: And follow simple neurologic testing able to move bilateral upper and lower extremities, equal strength bilaterally, pupils equal round react to light, extraocular movements intact, Psych: COMMON NORMALS: mental status grossly normal Data 07/17/24 12:18 07/17/24 12:18 A&P Assessment and plan (1) Glioblastoma: (2) Altered mental status: Plan Altered mental status, deconditioning, poor appetite, decline -Likely from underlying glioblastoma, will await medical records from [facility] to confirm this -Family does report that she has not been taking her Decadron regularly Plan -Start Decadron 4 mg IV push every 6 hours, has received 10 mg IV push in the emergency room -Continue Keppra -IV fluids -PT OT -Will discuss with oncology, radiation oncology -Neurochecks, seizure precautions, night stroke scale -Full code -Lovenox for DVT prophylaxis Attestations Medical Necessity Statement*: Patient requires hospitalization, outpatient with observation, for altered mental status, deconditioning, poor appetite, decline with underlying glioblastoma Diagnoses Glioblastoma C71.9 Altered mental status R41.82
[2024-07-17 16:39] LABS: INR 0.97 (0.8-1.2)
[2024-07-17 17:08] LABS: NT Pro B Type Natriuretic Pept 119 pg/mL (0-125)
[2024-07-17 21:01] LABS: Thyroid Stimulating Hormone 0.88 uIU/mL (0.27-4.20)
[2024-07-17 21:23] LABS: Estmated Average Glucose 120; Hemoglobin A1C 5.8 % (4.0-6.0)
[2024-07-17] MEDS: escitalopram 10 mg Tablet 5 MG PO (22:01)
[2024-07-17] MEDS: pantoprazole 40 mg SDV IVP (22:01)
[2024-07-17] MEDS: levETIRAcetam 500 mg Tablet PO (22:02)
[2024-07-17] MEDS: sodium chloride 0.9% 1,000 ML 75 ML IV (22:02)
[2024-07-17] MEDS: enoxaparin 40 mg/0.4 mL Syringe SUBCUT (22:02)
[2024-07-18 03:53] VITALS: BP 149/72; PULSE 65; RESP 16; TEMP 36.6; O2SAT 96
[2024-07-18 05:33] LABS: Eosinophils % 0.1 %; Hematocrit 40.8 % (36-47); Lymphocytes # 0.6 10^3/uL (0.8-4.8); Mean Corpuscular HGB Conc 32.6 g/dL (30-55); Mean Corpuscular Hemoglobin 33.7 pg (27-33); Mean Corpuscular Volume 103.3 fl (85-98); Mean Platelet Volume 11.2 fL (7.4-10.4); Monocytes # 0.7 10^3/uL (0.2-0.9); Monocytes % 9.7 %; Neutrophils # 6.02 10^3/uL (1.8-7.7); Neutrophils % 81.3 %; Nucleated Red Blood Cells % 0 %; Platelet Count 164 10^3/cmm (157-399); Red Blood Count 3.95 10^6/uL (3.85-5.65); Red Cell Distribution Width 12.7 % (12.1-15.1); White Blood Count 7.41 10^3/uL (3.29-11.43)
[2024-07-18 05:43] VITALS: PULSE 89
[2024-07-18] MEDS: dexamethasone 4 mg/mL INJ IVP ×4 (06:23→23:34)
[2024-07-18 07:56] VITALS: BP 134/75; PULSE 53; RESP 17; TEMP 36.6; O2SAT 94
[2024-07-18 09:01] LABS: Blood Urea Nitrogen 22 mg/dL (8-23); Calcium 7.9 mg/dL (8.5-10.5); Carbon Dioxide 19 mmol/L (22-29); Chloride 99 mmol/L (98-107); Creatinine Clr Calc Pharmacy 60.5223; Glucose 83 mg/dL (65-115); Osmolality Calculated 268 mOsm/kg (285-295); Sodium 128 mmol/L (136-145)
[2024-07-18 09:14] LABS: Anion Gap 14.3 (5-19); Potassium 4.3 mmol/L (3.5-5.1)
[2024-07-18] MEDS: pantoprazole 40 mg SDV IVP ×2 (09:21→19:39)
[2024-07-18] MEDS: levETIRAcetam 500 mg Tablet PO ×2 (09:21→16:35)
--- NOTE | 2024-07-18 09:47 | PC.CHAP ---
Pastoral Care Encounter/Spiritual Assessment Type of Contact [x] Declined design director visit [] Patient/Family/Request visit [] Outpatient visit [] Follow-up visit [] Physician referral [] Code/Alert [] Routine visit [] Staff referral [] Actively dying [] Patient sleeping [x] Family support [] [] Out of room [] Palliative care [] [] Receiving care in room [] Pre-surgical visit [] Trauma [] Long length of stay [] ICU visit [] Other: Relational/Emotional Strength [] Patient feels connected with others/family/visitors/staff [] Distress [] Loneliness/isolation [] Abandonment Spirituality of Patient [] Person of [place] [] Attends Adventism of their [place] [] Believes in Prayer [] Reads Bible or Druze materials [x] There are Spiritual issues to be addressed Route Sales Associate Interventions [] Prayer [] Active listening [] Non-anxious presence [] Spiritual/emotional support [] Crisis/trauma care [] Spiritual counseling [] Bereavement support [] Provided bereavement packet [] Provided Bible/devotional materials [] Provided toy/stuffed animal, coloring book to patient or family member [] Provided Communion [] Anointing/[place] [] Salvation [] Completed spiritual assessment [] Other: Impact on Illness or Injury [] Angry [] Fearful [] Anxious [] Often cries [] Exhaustion [] Unable to work [] Unable to attend holiness [] Unable to walk/stand [] Unable to read [] Unable to drive [] Unable to eat/drink [] Unable to sleep [] Unable to be with family [] Patient intubated [] Other: Summary Time spent with patient
[2024-07-18 12:38] VITALS: BP 128/68; PULSE 63; RESP 18; TEMP 36.6; O2SAT 96
[2024-07-18] MEDS: sodium chloride 0.9% 1,000 ML 75 ML IV ×2 (14:14→23:33)
[2024-07-18] MEDS: atorvastatin 40 mg Tablet PO (14:29)
[2024-07-18] MEDS: aspirin 81 mg EC Tablet PO (14:30)
[2024-07-18] MEDS: LORazepam 0.5 mg Tablet PO (14:37)
--- NOTE | 2024-07-18 16:18 | P.PN_ITS ---
Subjective 2 Subjective: - Patient was seen this morning, she is alert to person, to place, not to time, continues to have episodes of encephalopathy, but can follow commands -Her appetite has improved to some degre e, she did have a couple bites of chocolate pudding -I had a detailed discussion with family at bedside -Family tells me that they were called l ast night about her biopsy results who called him thus is unsure, possibly the neurologist, but he was told that it was glioblastoma -I had a discussion with patient family about goals of care, patient remains a full code -We had a detailed discussion about what the next steps are - tells me that he cannot take he r back to the rehab facility like this as she is still weak, fatigued, she has had a poor appetite, she remains confused -He is worried that outpatient follow-up s cannot be carried out due to her generalized weakness, her persistent confusion and her rapid decline in functioning in the last 3 months -We discussed options are available, as we do not have inpatient oncology available here at [facility] and we do not have inpatient neurosurgery available here we discussed transfer to tertiary level center -Given Sunni's age of 69, her high leve l of functioning before her diagnosis 3 months ago, her rapid decline in the last 3 months, and that all her testing and evaluation was done at [facility] recommended transfer to tertiary level center such as [facility] for her evaluation -I advised family that given her rapid d eterioration, I think standard deserves evaluation by neurosurgery, and inpatient oncology to possibly start chemotherapy and radiation therapy as inpatient if that is what family wants, but the specialist need to give patient and their family their opinions, as I am not those specialists -And given that patient had a rapid decl ine in 3 months, I think she deserves a thorough evaluation and consultation by neurosurgery, inpatient oncology to see if she is a candidate for any significant interventions -I also discussed with him that glioblas josy's are aggressive cancers, I also presented them with the option of hospice care, comfort care -After discussing with him the risk and benefits of all options, they voiced understanding, all questions answered, patient cannot give me an informed decision so at bedside would like center to be transferred to [facility] ? I called [facility] early in the morning at about 11 AM, unfortunately they do not have any beds at this point, and they do not have a waiting list, I did inform the that Sunni Iglesias has had all her evaluations done at [facility], she had her brain biopsy at [facility], her neurologist is at [facility] -I did give the family options of other hospitals however they have declined ? I called [facility] again at about 2 PM, unfortunately they do not have any beds available even after discharges, will try again later on, Vitals/I&O/Wt Last Vital Signs Temp 97.9 F 07/18/24 12:38 Pulse 63 07/18/24 12:38 Resp 18 07/18/24 12:38 BP 128/68 07/18/24 12:38 Pulse Ox 96 07/18/24 12:38 O2 Del Method Room Air 07/18/24 12:38 07/18/24 07/18/24 07/18/24 06:59 14:59 22:59 Intake Total 450 / 1450 1000 / 1000 Output Total 200 / 200 400 / 400 Balance 250 / 1250 600 / 600 Weight last 48 hrs Weight 59.647 kg Weight 61.235 kg Weight 56.699 kg Physical Exam 2 Const: COMMON NORMALS: no acute distress ORIENTATION/CONSCIOUSNESS: Yes awake, Yes oriented to person and Yes confused; not oriented to place and not oriented to time Resp: COMMON NORMALS: normal respiratory effort, No retractions, No use of accessory muscles and clear to auscultation bilaterally AUSCULTATION: clear to auscultation bilaterally Cardio: COMMON NORMALS: regular rate, regular rhythm, S1 normal heart sound present and S2 normal heart sound present RATE: regular rate RHYTHM: r egular rhythm HEART SOUNDS: S1 normal heart sound present and S2 normal heart sound present GI: COMMON NORMALS: Normal to inspection, nondistended, normoactive bowel sounds present and non-tender Extremity: COMMON NORMALS: no pedal edema Neuro: SENSORIUM/ORIENTATION: Yes oriented to person, No oriented to place and No oriented to time Data 07/18/24 04:47 07/18/24 08:36 A&P Assessment and plan (1) Glioblastoma: (2) Altered mental status: Plan Altered mental status, deconditioning, poor appetite, decline -Likely from underlying glioblastoma, will await medical records from [facility] to confirm this -Family does report that she has not been taking her Decadron regularly Plan -Start Decadron 4 mg IV push every 6 hours -Continue Keppra -IV fluids -PT OT -Patient's family would like patient to be transferred to [facility] for inpatient oncology evaluation, inpatient neurosurgery evaluation, they are considering inpatient treatment chemo/radiation/possible surgical intervention -Neurochecks, seizure precautions, night stroke scale -Full code -Lovenox for DVT prophylaxis -Hyponatremia, serum sodium 128, monitor Attestations 2 Medical Necessity Statement*: Patient requires hospitalization for altered mental status, glioblastoma Diagnoses Glioblastoma C71.9 Altered mental status R41.82
[2024-07-18] MEDS: acetaminophen 325 mg Tablet 650 MG PO (16:34)
[2024-07-18] MEDS: quetiapine 25 mg Tablet 50 MG PO (16:34)
[2024-07-18] MEDS: escitalopram 10 mg Tablet 5 MG PO (16:35)
[2024-07-18 16:38] VITALS: BP 128/77; PULSE 64; RESP 18; TEMP 36.7; O2SAT 97
[2024-07-18] MEDS: enoxaparin 40 mg/0.4 mL Syringe SUBCUT (19:38)
[2024-07-18 20:00] VITALS: BP 153/89; PULSE 64; RESP 17; TEMP 36.4; O2SAT 96
[2024-07-19] VITALS: BP 124/69; PULSE 43; RESP 19; TEMP 36.5; O2SAT 95
[2024-07-19 04:00] VITALS: BP 132/82; PULSE 40; RESP 16; TEMP 36.6; O2SAT 95
[2024-07-19] MEDS: dexamethasone 4 mg/mL INJ IVP ×3 (05:43→17:54)
[2024-07-19 05:58] LABS: Hematocrit 41.4 % (36-47); Lymphocytes # 0.5 10^3/uL (0.8-4.8); Lymphocytes % 8.6 %; Mean Corpuscular HGB Conc 34.8 g/dL (30-55); Mean Corpuscular Volume 97.6 fl (85-98); Mean Platelet Volume 10.1 fL (7.4-10.4); Monocytes # 0.5 10^3/uL (0.2-0.9); Monocytes % 9.3 %; Neutrophils # 4.52 10^3/uL (1.8-7.7); Neutrophils % 81.2 %; Nucleated Red Blood Cells % 0 %; Platelet Count 134 10^3/cmm (157-399); Red Blood Count 4.24 10^6/uL (3.85-5.65); Red Cell Distribution Width 12.7 % (12.1-15.1); White Blood Count 5.57 10^3/uL (3.29-11.43)
[2024-07-19 06:22] LABS: Blood Urea Nitrogen 19 mg/dL (8-23); Calcium 8.5 mg/dL (8.5-10.5); Carbon Dioxide 18 mmol/L (22-29); Chloride 104 mmol/L (98-107); Creatinine Clr Calc Pharmacy 60.4857; Glucose 106 mg/dL (65-115); Osmolality Calculated 281 mOsm/kg (285-295); Sodium 134 mmol/L (136-145)
[2024-07-19 06:25] LABS: Anion Gap 16.9 (5-19); Potassium 4.9 mmol/L (3.5-5.1)
[2024-07-19 08:00] VITALS: BP 136/80; PULSE 54; RESP 18; TEMP 36.5; O2SAT 91
[2024-07-19] MEDS: acetaminophen 325 mg Tablet 650 MG PO ×2 (09:42→21:30)
[2024-07-19] MEDS: atorvastatin 40 mg Tablet PO (09:43)
[2024-07-19] MEDS: levETIRAcetam 500 mg Tablet PO ×2 (09:43→17:54)
[2024-07-19] MEDS: aspirin 81 mg EC Tablet PO (09:43)
[2024-07-19] MEDS: pantoprazole 40 mg SDV IVP ×2 (09:43→21:30)
[2024-07-19 12:00] VITALS: BP 114/73; PULSE 64; RESP 14; TEMP 36.6; O2SAT 94
[2024-07-19] MEDS: LORazepam 0.5 mg Tablet PO ×2 (12:52→21:31)
--- NOTE | 2024-07-19 15:12 | PM.PN ---
Subjective Subjective: Patient was seen this morning, she is sitting up in a chair, family members at bedside, the Seroquel overnight made her quite drowsy, she is able to awaken, able to follow simple commands and falls back asleep, family members at bedside -Discussed my difficulty transferring her to [facility] as they currently do not have beds -Spoke to [facility], spoke to their neurosurgery on-call, nurse practitioner, they reviewed patient's case, patient is not a candidate for surgical intervention -Spoke to [facility], spoke to their transfer line, who spoke to their oncology services, who recommended transfer for radiation therapy, chemotherapy -Spoke to [facility] transfer line again, unfortunately they do not have beds -Spoke to [facility] transfer line in the afternoon unfortunately do not have beds, no wait list -Discussed with family again about recommendations from [facility], unfortunately I do not have any beds, discussed with over the phone, about secondary options -Family wants to try [facility] in [place] ? Spoke to [facility], spoke to their neurosurgery division, they reviewed images from [facility], patient is not a neurosurgical candidate for her glioblastoma -Spoke to [facility] transfer line, spoke to their hospitalist, patient has been accepted, but the wait list is over 7 days - Vitals/I&O/Wt Last Vital Signs Temp 97.8 F 07/19/24 12:00 Pulse 64 07/19/24 12:00 Resp 14 07/19/24 12:00 BP 114/73 07/19/24 12:00 Pulse Ox 94 07/19/24 12:00 O2 Del Method Room Air 07/19/24 12:00 07/19/24 07/19/24 07/19/24 06:59 14:59 22:59 Intake Total 698.75 / 2058.75 Output Total 400 / 400 Balance 698.75 / 1158.75 -400 / -400 Weight last 48 hrs Weight 59.557 kg Weight 59.647 kg Weight 61.235 kg Physical Exam Const: COMMON NORMALS: no acute distress ORIENTATION/CONSCIOUSNESS: Yes awake, Yes oriented to person and Yes confused; not oriented to place and not oriented to time Resp: COMMON NORMALS: normal respiratory effort, No retractions, No use of accessory muscles and clear to auscultation bilaterally AUSCULTATION: clear to auscultation bilaterally Cardio: COMMON NORMALS: regular rate, regular rhythm, S1 normal heart sound present and S2 normal heart sound present RATE: regular rate RHYTHM: regular rhythm HEART SOUNDS: S1 normal heart sound present and S2 normal heart sound present GI: COMMON NORMALS: Normal to inspection, nondistended, normoactive bowel sounds present and non-tender Extremity: COMMON NORMALS: no pedal edema Neuro: SENSORIUM/ORIENTATION: Yes oriented to person, No oriented to place and No oriented to time Psych: COMMON NORMALS: mental status grossly normal Data 07/19/24 05:42 07/19/24 05:42 A&P Assessment and plan (1) Glioblastoma: (2) Altered mental status: Plan Altered mental status, deconditioning, poor appetite, decline -Likely from underlying glioblastoma, will await medical records from [facility] to confirm this -Family does report that she has not been taking her Decadron regularly Plan -Start Decadron 4 mg IV push every 6 hours -Continue Keppra -IV fluids -PT OT -Patient's family would like patient to be transferred to [facility] for inpatient oncology evaluation, inpatient neurosurgery evaluation, they are considering inpatient treatment chemo/radiation/possible surgical intervention -Neurochecks, seizure precautions, NIH stroke scale -Full code -Lovenox for DVT prophylaxis -Hyponatremia, serum sodium 134, monitor Attestations Medical Necessity Statement*: Patient requires hospitalization for altered mental status likely glioblastoma Diagnoses Glioblastoma C71.9 Altered mental status R41.82
[2024-07-19 16:00] VITALS: BP 143/79; PULSE 55; RESP 16; TEMP 36.9; O2SAT 91
[2024-07-19] MEDS: escitalopram 10 mg Tablet 5 MG PO (17:54)
[2024-07-19 20:00] VITALS: BP 118/72; PULSE 83; RESP 17; TEMP 36.8; O2SAT 94
[2024-07-19] MEDS: enoxaparin 40 mg/0.4 mL Syringe SUBCUT (21:29)
[2024-07-20] VITALS: BP 125/75; PULSE 65; RESP 18; TEMP 36.9; O2SAT 96
[2024-07-20] MEDS: dexamethasone 4 mg/mL INJ IVP ×3 (00:30→10:40)
[2024-07-20] MEDS: sodium chloride 0.9% 1,000 ML 75 ML IV ×2 (00:32→13:56)
[2024-07-20 04:00] VITALS: BP 144/73; PULSE 75; RESP 19; TEMP 36.4; O2SAT 95
[2024-07-20 05:06] LABS: Lymphocytes # 0.4 10^3/uL (0.8-4.8); Lymphocytes % 4.4 %; Mean Corpuscular HGB Conc 32.8 g/dL (30-55); Mean Corpuscular Hemoglobin 33.8 pg (27-33); Mean Corpuscular Volume 102.9 fl (85-98); Mean Platelet Volume 11.1 fL (7.4-10.4); Monocytes # 0.5 10^3/uL (0.2-0.9); Monocytes % 5.6 %; Neutrophils # 7.16 10^3/uL (1.8-7.7); Neutrophils % 89.5 %; Nucleated Red Blood Cells % 0 %; Platelet Count 139 10^3/cmm (157-399); Red Blood Count 3.79 10^6/uL (3.85-5.65); Red Cell Distribution Width 12.9 % (12.1-15.1)
[2024-07-20 05:32] LABS: Blood Urea Nitrogen 28 mg/dL (8-23); Calcium 7.8 mg/dL (8.5-10.5); Carbon Dioxide 19 mmol/L (22-29); Chloride 103 mmol/L (98-107); Creatinine Clr Calc Pharmacy 60.2824; Glucose 125 mg/dL (65-115); Osmolality Calculated 283 mOsm/kg (285-295); Sodium 133 mmol/L (136-145)
[2024-07-20 05:33] LABS: Anion Gap 15.1 (5-19); Potassium 4.1 mmol/L (3.5-5.1)
[2024-07-20 08:00] VITALS: BP 129/73; PULSE 61; RESP 16; TEMP 36.6; O2SAT 95
[2024-07-20] MEDS: pantoprazole 40 mg SDV IVP (09:52)
[2024-07-20] MEDS: levETIRAcetam 500 mg Tablet PO (10:40)
[2024-07-20 12:00] VITALS: BP 145/82; PULSE 61; RESP 16; TEMP 36.8; O2SAT 95
[2024-07-20] MEDS: LORazepam 0.5 mg Tablet PO (15:26)
[2024-07-20 15:40] VITALS: BP 138/84; PULSE 75; RESP 18; TEMP 36.4; O2SAT 94
--- NOTE | 2024-07-20 16:15 | PM.PN ---
Subjective Subjective: - Patient was seen this morning -She is a bit drowsy but does awaken, alert to person, to place, not to time, she has no complaints she did not have a good appetite this morning -Discussed with that currently she is on the wait list for [facility], discussed with if we should try another hospital that has bed available that could offer her inpatient radiation therapy as soon as possible, he is agreeable, options discussed were [facility] -[facility] does not have a waiting list but I will call them again this morning ? Spoke to [facility], still no beds available ? Saw this afternoon discussed with [facility] does not have beds, [facility] still does not have any beds available she is on the wait list at [facility] and I heard that she was a high priority but still no bed available -Patient was seen she is much more alert awake can follow commands, she has no complaints -Discussed trying other hospitals in [place], would prefer a [facility] hospital we will try [facility] -Spoke to [facility], they do have beds available but in their [facility], spoke to , he is agreeable -Spoke to [facility], hospitalist, about patient's condition, patient is urgent need for inpatient radiation therapy chemotherapy, oncology evaluation, and radiation oncology evaluation, patient has been accepted, to their stepdown unit, they will call with a bed Vitals/I&O/Wt Last Vital Signs Temp 97.6 F 07/20/24 15:40 Pulse 75 07/20/24 15:40 Resp 18 07/20/24 15:40 BP 138/84 07/20/24 15:40 Pulse Ox 94 07/20/24 15:40 O2 Del Method Room Air 07/20/24 15:40 07/20/24 07/20/24 07/20/24 06:59 14:59 22:59 Intake Total 0 / 1360 1120 / 1120 Output Total 850 / 850 300 / 1150 Balance 0 / 610 270 / 270 -300 / -30 Weight last 48 hrs Weight 59.058 kg Weight 59.557 kg Physical Exam Const: COMMON NORMALS: no acute distress ORIENTATION/CONSCIOUSNESS: Yes awake, Yes oriented to person and Yes oriented to place; not oriented to time Resp: COMMON NORMALS: normal respiratory effort, No retractions, No use of accessory muscles and clear to auscultation bilaterally AUSCULTATION: clear to auscultation bilaterally Cardio: COMMON NORMALS: regular rate, regular rhythm, S1 normal heart sound present and S2 normal heart sound present RATE: regular rate RHYTHM: regular rhythm HEART SOUNDS: S1 normal heart sound present and S2 normal heart sound present GI: COMMON NORMALS: Normal to inspection, nondistended, normoactive bowel sounds present and non-tender Extremity: COMMON NORMALS: no pedal edema Neuro: SENSORIUM/ORIENTATION: Yes oriented to person, Yes oriented to place and No oriented to time Psych: COMMON NORMALS: mental status grossly normal Data 07/20/24 04:38 07/20/24 04:38 A&P Assessment and plan (1) Glioblastoma: (2) Altered mental status: Plan Altered mental status, deconditioning, poor appetite, decline from glioblastoma -Likely from underlying glioblastoma, will await medical records from [facility] to confirm this -Family does report that she has not been taking her Decadron regularly Plan -Continue Decadron 4 mg IV push every 6 hours -Continue Keppra -IV fluids -PT OT -Is on the wait list for [facility] however they still do not have any beds available ? Accepted at [facility], to the stepdown unit, they will call when the bed is available, I am hoping tonight -Neurochecks, seizure precautions, NIH stroke scale -Full code -Lovenox for DVT prophylaxis -Hyponatremia, serum sodium 133, monitor Attestations Medical Necessity Statement*: Patient requires hospitalization for altered mental status, deconditioning, poor appetite, decline, from glioblastoma Diagnoses Glioblastoma C71.9 Altered mental status R41.82
--- NOTE | 2024-07-20 18:12 | PC.NURSE ---
Received bed from [facility]. Bed 713. This nurse called report to Lisa HUNTER. Memo Gnozalez just picked up patient. Phone number for [facility] is [phone]. at bedside when patient was leaving.
[2024-07-20 18:15] VITALS: BP 138/84; PULSE 75; RESP 18; TEMP 36.4; O2SAT 94
== END 2024-07-20 18:16 | disposition short-term general hospital (02) ==
LOC: ER 18:23 → MEDSURG 23:00
PROVIDERS: Admitting Provider Family Medicine; Emergency Provider Emergency Medicine; PCP Family Medicine; Visit Provider Family Medicine
DX: C71.9 Malignant neoplasm of brain, unspecified (principal); G93.40 Encephalopathy, unspecified; E86.0 Dehydration; R62.7 Adult failure to thrive; E87.1 Hypo-osmolality and hyponatremia; Z79.82 Long term (current) use of aspirin; Z88.1 Allergy status to other antibiotic agents; Z88.5 Allergy status to narcotic agent; Z86.73 Personal history of transient ischemic attack (TIA), and cerebral infarction without residual deficits; Z85.3 Personal history of malignant neoplasm of breast; Z75.1 Person awaiting admission to adequate facility elsewhere; Z79.899 Other long term (current) drug therapy
CPT/HCPCS: 36415; 36600; 70450; 71045; 80048; 80051; 80053; 81001; 82330; 82805; 83036; 83605; 83880; 84145; 84443; 85025; 85610; 86140; 93005; 94664; 96372; 96374; 99285; G0378; J1100; J1650; J2470; J7030